=== PATIENT | female | born 1980 | race Caucasian/White ===

== ENCOUNTER → 2016-04-22 | Outpatient (REF) | payer BC | END | disposition home or self-care (01) | LOC: M LAB REF 13:12 | PROVIDERS: ATTEND Internal Medicine Medical Oncology | DX: C50.919 Malignant neoplasm of unspecified site of unspecified female breast (principal) ==

== ENCOUNTER → 2016-05-10 | Outpatient (RCR) | payer BC | LOC: M OUTALCOH 04-13 13:19 | PROVIDERS: ATTEND Psychiatry & Neurology Psychiatry | DX: F10.20 Alcohol dependence, uncomplicated (principal); Z72.0 Tobacco use ==

== ENCOUNTER → 2016-06-07 | Outpatient (RCR) | payer BC | LOC: M OUTALCOH 05-11 16:00 | PROVIDERS: ATTEND Psychiatry & Neurology Psychiatry | DX: F10.20 Alcohol dependence, uncomplicated (principal); Z72.0 Tobacco use ==

== ENCOUNTER 2016-07-07 14:00 | Outpatient (RCR) | payer BC | END 2016-07-08 | LOC: M OUTALCOH 14:00 | PROVIDERS: ATTEND Psychiatry & Neurology Psychiatry | DX: F10.20 Alcohol dependence, uncomplicated (principal); Z72.0 Tobacco use ==

== ENCOUNTER 2016-07-25 15:00 | Outpatient (RCR) | payer OTHER | END 2016-08-07 | LOC: M OUTALCOH 15:00 | PROVIDERS: ATTEND Psychiatry & Neurology Psychiatry | DX: F10.20 Alcohol dependence, uncomplicated (principal); Z72.0 Tobacco use ==

== ENCOUNTER → 2016-12-22 | Outpatient (CLI) | payer OTHER | LOC: M OUTALCOH 12:47 | PROVIDERS: ATTEND Psychiatry & Neurology Psychiatry | DX: F10.20 Alcohol dependence, uncomplicated (principal) ==

== ENCOUNTER 2016-12-29 15:25 | Outpatient (RCR) | payer OTHER | END 2017-01-07 | LOC: M OUTALCOH 15:25 | PROVIDERS: ATTEND Psychiatry & Neurology Psychiatry | DX: F10.20 Alcohol dependence, uncomplicated (principal); Z72.0 Tobacco use ==

== ENCOUNTER → 2017-03-09 | Outpatient (RCR) | payer OTHER | LOC: M OUTALCOH 02-16 08:00 | PROVIDERS: ATTEND Psychiatry & Neurology Psychiatry | DX: F10.20 Alcohol dependence, uncomplicated (principal); Z72.0 Tobacco use ==

== ENCOUNTER → 2017-09-26 | Outpatient (REF) ==
[2017-09-27 11:14] LABS: RUBELLA IgG QUALITATIVE IMMUNE (IMMUNE)
[2017-09-28 08:22] LABS: RUBEOLA IgG ANTIBODY <25.0 AU/mL (Immune >29.9)
== END ==
LOC: M LAB 15:28
DX: Z02.1 Encounter for pre-employment examination (principal)

== ENCOUNTER → 2018-09-04 | Outpatient (CLI) | payer BC ==
--- NOTE | 2018-09-04 12:08 | REP ---
LUMBAR SPINE, SIX VIEWS: HISTORY: Back pain. There is no acute fracture or subluxation. The L4-5 intervertebral disc is decreased in height consistent with disc degeneration. An osteophyte is present on L4. There is narrowing of the left L4-5 and L5-S1 and right L5-S1 facet joints. IMPRESSION: Degenerative change as described above. Electronically Signed by Bryant Muniz MD 09/04/2018 12:17 P
[2018-09-04 16:29] LABS: BASO # 0.1 10^3/uL (0.0-0.2); BASO % 0.6 % (0.0-1.0); EOS # 0.2 10^3/uL (0.0-0.50); EOS % 2.9 % (0.0-3.0); HEMOGLOBIN 14.3 g/dl (12.0-15.5); LYMPH # 2.6 10^3/uL (1.5-4.5); LYMPH % 32.4 % (24.0-44.0); MEAN CORPUSCULAR HEMOGLOBIN 30.5 pg (27.0-33.0); MEAN CORPUSCULAR HGB CONC 33.3 g/dl (32.0-36.5); MEAN CORPUSCULAR VOLUME 91.7 fl (80.0-96.0); MONO # 0.6 10^3/uL (0.0-0.8); NEUTROPHILS # 4.4 10^3/uL (1.8-7.7); NEUTROPHILS % 56.6 % (36.0-66.0); PLATELET COUNT, AUTOMATED 254 10^3/uL (150-450); RED BLOOD COUNT 4.69 10^6/uL (4.00-5.40); WHITE BLOOD COUNT 7.9 10^3/uL (4.0-10.0)
[2018-09-04 18:52] LABS: ALBUMIN 3.9 GM/DL (3.2-5.2); ALT/SGPT 14 U/L (12-78); BILIRUBIN,TOTAL 0.2 MG/DL (0.2-1.0); BLOOD UREA NITROGEN 7 MG/DL (7-18); CALCIUM LEVEL 8.7 MG/DL (8.5-10.1); CARBON DIOXIDE LEVEL 28 MEQ/L (21-32); CHLORIDE LEVEL 109 MEQ/L (98-107); CREATININE FOR GFR 0.65 MG/DL (0.55-1.30); GLOMERULAR FILTRATION RATE > 60.0 (>60); GLUCOSE, FASTING 90 MG/DL (70-100); POTASSIUM SERUM 4.5 MEQ/L (3.5-5.1); SODIUM LEVEL 142 MEQ/L (136-145); TOTAL PROTEIN 7.3 GM/DL (6.4-8.2)
== END ==
LOC: M WUC 10:47
PROVIDERS: ATTEND Family Medicine
DX: C50.919 Malignant neoplasm of unspecified site of unspecified female breast (principal); M51.36 Other intervertebral disc degeneration, lumbar region; M51.37 Other intervertebral disc degeneration, lumbosacral region; M25.78 Osteophyte, vertebrae

== ENCOUNTER → 2019-07-19 | Outpatient (CLI) | payer BC ==
[~2019-07-19] MED LIST: ALPR0.5T3 PO; ISOVUE-370 76% 100ML VIAL (Q9967) As Ordered ONE; QUET100T2 PO
--- NOTE | 2019-07-19 17:00 | REP ---
HISTORY: History if breast carcinoma with dyspnea. COMPARISON: 04/22/2013, the only prior. CONTRAST: 100 mL Isovue-370 There is no mediastinal or hilar adenopathy. There are no pleural or pericardial effusions. The imaged upper abdomen is within normal limits. The imaged osseous structures are within normal limits and essentially unchanged from the prior exam. Evaluation of the lung blount show no significant changes from 04/22/2013. There are no new abnormal nodules, masses or opacities. Mild stable biapical chronic lung changes, status quo. IMPRESSION: Stable chest. There is no evidence of acute disease. Electronically Signed by Nahun Ellis DO 07/19/2019 05:07 P
== END ==
LOC: M RAD 15:45
PROVIDERS: ATTEND Internal Medicine Medical Oncology
DX: R06.02 Shortness of breath (principal); Z85.3 Personal history of malignant neoplasm of breast
CPT/HCPCS: 71260; Q9967

== ENCOUNTER → 2019-07-23 | Outpatient (CLI) | payer BC ==
[~2019-07-23] MED LIST changes: -ISOVUE-370 76% 100ML VIAL (Q9967) As Ordered ONE; +PROHANCE 279.3MG/ML 5ML VIAL (A9576) As Ordered ONE
--- NOTE | 2019-07-23 13:11 | REP ---
MRI BRAIN WITH AND WITHOUT CONTRAST: Comparison 09/05/2014. TECHNIQUE: Multiple sequences obtained in the sagittal, axial, and coronal planes prior to and following the intravenous administration of 9 mL ProHance. The ventricles are normal in size and position with no midline shift or mass effect. Art-white differentiation is well maintained. No abnormal signal or enhancement is seen in the brain, brainstem, or cerebellum. The seventh and eighth cranial nerve complexes are unremarkable. Globes are intact. No intraorbital abnormality is seen. The visualized paranasal sinuses are clear. No extra-axial fluid collection is seen. IMPRESSION: No intracranial lesion identified. Electronically Signed by Wesley Art MD 07/23/2019 03:30 P
--- NOTE | 2019-07-23 14:21 | MEDONCTEEN ---
Date/Time of Encounter Date of Encounter: Jul 23, 2019 Telephone Encounter Ms. Yang is a 39-year-old female with a history of stage II A breast cancer which is ER positive, ID positive, HER-2/venessa negative he was found to have symptoms of headache, blurry vision, and increasing shortness of breath recently. CT chest was performed 07/22/19 followed by MRI of the brain with and without contrast on 07/23/2019. Both of these are nonrevealing and show no dar dence of malignancy. The patient was called with these results. Laboratory data that is stated below was also reviewed with the patient. We discussed that while the imaging was reassuring as it did not show any pathologic findings or evidence of malignancy, it does not explain why she is having these symptoms. The patient was encouraged to call the [facility] to determine what her appointment on 08/05/19 is with regards to. We will cancel her follow-up on 07/30/2019. Instead, we will follow-up with the patient in 6 months time with labs. We'll call her with this new appointment. She knows to contact us in the interim if needed. The plan was explained to the patient voiced understanding. Item Value Date Time CA 15-3 Antigen 11.4 U/ML 07/17/19 0859 CA 27.29 22.0 U/mL 07/17/19 0859 This is a telephonic visit which was performed without the use of video technology. The patient was informed of the risks including security breach, technological failure, inability to perform a physical exam which could delay or prevent an accurate diagnosis, and potential complications from treatment decisions rendered over a telephonic platform. The patient understands and consented to the use of a telephonic visit/telephone call. GRACIE JULIEN MD Jul 23, 2019 14:21
== END ==
LOC: M RAD 10:44
PROVIDERS: ATTEND Internal Medicine Medical Oncology
DX: R51 Headache (principal); Z85.3 Personal history of malignant neoplasm of breast; Z87.891 Personal history of nicotine dependence
CPT/HCPCS: 70553; A9576

== ENCOUNTER → 2019-08-09 | Outpatient (CLI) | payer BC ==
[~2019-08-09] MED LIST changes: -PROHANCE 279.3MG/ML 5ML VIAL (A9576) As Ordered ONE
--- NOTE | 2019-08-09 12:06 | REP ---
REASON FOR EXAM: Axillary fullness not breast. Ultrasonographic evaluation of the right axilla not breast was performed. There are no cystis or solid masses. A subcentimeter size reniform shape peripherally hypoechoic centrally echogenic nodule was imaged consistent with an axillary lymph node of normal size, shape and echo pattern.
== END ==
LOC: M WHC 10:46
PROVIDERS: ATTEND Surgery
DX: R22.2 Localized swelling, mass and lump, trunk (principal)

== ENCOUNTER → 2020-05-01 | Outpatient (CLI) | payer BC ==
[~2020-05-01] MED LIST changes: +AMBI12.52 PO; +AMOX500C PO; +MIRT1TAB15 PO; +PERCOCET PO
[2020-05-01 10:09] LABS: HEMATOCRIT 41.2 % (36.0-47.0); HEMOGLOBIN 13.9 g/dl (12.0-15.5); MEAN CORPUSCULAR HEMOGLOBIN 30.5 pg (27.0-33.0); MEAN CORPUSCULAR HGB CONC 33.7 g/dl (32.0-36.5); MEAN CORPUSCULAR VOLUME 90.5 fl (80.0-96.0); PLATELET COUNT, AUTOMATED 270 10^3/uL (150-450); RED BLOOD COUNT 4.55 10^6/uL (4.00-5.40); WHITE BLOOD COUNT 8.3 10^3/uL (4.0-10.0)
[2020-05-01 10:39] LABS: ALBUMIN 4.1 GM/DL (3.2-5.2); ALT/SGPT 18 U/L (12-78); BILIRUBIN,TOTAL 0.3 MG/DL (0.2-1.0); BLOOD UREA NITROGEN 13 MG/DL (7-18); CARBON DIOXIDE LEVEL 26 MEQ/L (21-32); CHLORIDE LEVEL 103 MEQ/L (98-107); CREATININE FOR GFR 0.64 MG/DL (0.55-1.30); GLOMERULAR FILTRATION RATE > 60.0 (>60); GLUCOSE, FASTING 86 MG/DL (70-100); POTASSIUM SERUM 4.3 MEQ/L (3.5-5.1); SODIUM LEVEL 138 MEQ/L (136-145); TOTAL PROTEIN 7.2 GM/DL (6.4-8.2)
== END ==
LOC: M LAB 09:33
PROVIDERS: ATTEND Family Medicine
DX: Z01.818 Encounter for other preprocedural examination (principal)

== ENCOUNTER → 2020-05-04 | Outpatient (CLI) | payer BC ==
--- NOTE | 2020-05-05 16:09 | ECGEPIP ---
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 Consider RIGHT VENTRICULAR HYPERTROPHY versus prior posterior wall CT. Slower rate with improved repolarization abnormalities from 04/12/15 Electronically Signed on 05-05-2020 16:09:49 EST by Arvind Horton
== END ==
LOC: M EKG 11:27
PROVIDERS: ATTEND Family Medicine
DX: Z01.818 Encounter for other preprocedural examination (principal)

== ENCOUNTER → 2020-05-07 | Outpatient (CLI) | payer BC ==
[~2020-05-07] MED LIST changes: -AMOX500C PO; -PERCOCET PO
== END ==
LOC: M LABSMTC 10:38
PROVIDERS: ATTEND Anesthesiology
DX: Z01.812 Encounter for preprocedural laboratory examination (principal); Z20.822 Contact with and (suspected) exposure to COVID-19

== ENCOUNTER 2020-05-12 06:18 | Observation (INO) | payer BC ==
[~2020-05-12] VITALS: Ht 157.5 cm; Wt 51.7 kg
[~2020-05-12 06:18] MED LIST changes: +LR 1,000 ML IV ONE; +ceFAZolin SOD 1 GM in D5W MINI-BAG PLUS 50 ML IV ONE
--- OUTSIDE RECORDS SUMMARY | 2020-05-12 06:22 | CCD | Continuity of Care Document ---
Author Author Helga HICKS DO Organization Unknown Address [address] [place] [address] Phone [phone] Care Team Providers Care Marketing Associate Name Role Phone Berry Costello M.D. AUT[facility] [phone] [facility] Unavailable Shala Shaikh D.O. AUTM [phone] Problems Active Problems Provider Date Malignant neoplasm of female breast Imelda Patton D.O. Ons et: 02/28/2013 Fibrocystic disease of breast Imelda Patton D.O. Onset: Breast lump Imelda Patton D.O. Onset: 02/28/2013 Social History Type Date Description Comments Sex Female Tobacco Use Start: Unknown Current Cigarette Smoker 5-10 Ci garettes Daily ETOH Use 1-2 A Week Tobacco Use Start: Unknown Denies Smoking Recreational Drug Use Denies Drug Use Smoking Status Reviewed: 08/14/19 Denies Smoking Allergies, Adverse Reactions, Alerts Active Allergies Reaction Severity Comments Date Reglan ANXIOUS 02/05/2013 Medications Active Medications SIG Qnty Indications Ordering Provide r Date Xanax 0.5mg Tablets 1 tab by mouth qhs Unknown Ambien CR 12.5mg Tablets ER 1 po qhs prn Unknown Immunizations Description No Information Available Vital Signs Date Vital Result Comment 05/01/2020 8:16am BP Systolic 98 mmHg BP Diastolic 66 mmHg Heart Rate 74 /min Respiratory Rate 14 /min Body Temperature 98.4 F Height 62 inches 5'2" Weight 116.00 lb BMI (Body Mass Index) 21.2 kg/m2 [place] Body Weight 110 lb Weight 52.618 kg BSA (Body Surface Area) 1.52 m2 12/09/2019 3:10pm BP Systolic 118 mmHg BP Diastolic 64 mmHg Heart Rate 84 /min Respiratory Rate 16 /min Body Temperature 98.2 F Height 62 inches 5'2" Weight 108.00 lb BMI (Body Mass Index) 19.8 kg/m2 [place] Body Weight 110 lb Weight 48.989 kg BSA (Body Surface Area) 1.47 m2 Results Description No Information Available Procedures Description No Information Available Medical Devices Description No Information Available Encounters Type Date Location Provider Dx Diagnosis Office Visit 12/09/2019 1:00p [facility] Angela Hicks DO Z42.1 Encounter for breast reconstruction following mastectomy T85.49xA [facility] compl of breast prosthe sis and implant, init encntr Assessments Date Code Description Provider 12/09/2019 Z42.1 Encounter for breast reconstruct ion following mastectomy Angela Hicks DO 12/09/2019 T85.49xA Other mechanical com plication of breast prosthesis and implant, initial encounter Angela Hicks DO Plan of Treatment Future Appointment(s):* 05/12/2020 7:30 am - Angela Hicks DO at [facility] Plastic Surgery * 05/15/2020 8:30 am - Angela Hicks DO at [facility] Functional Status Description No Information Available Mental Status Description No Information Available Referrals Description No Information Available
--- OUTSIDE RECORDS SUMMARY | 2020-05-12 06:22 | CCD ---
Author Author [facility] Organization [facility] Address Unknown Phone Unavailable Care Team Providers Care Correction Officer Name Role Phone FABIOLA, E LEDA DO Unavailable Unavailable FABIOLA, E LEDA DO Unavailable Unavailable FABIOLA, E LEDA DO Unavailable Unavailable FABIOLA, E LEDA DO Unavailable Unavailable FABIOLA, E LEDA DO Unavailable Unavailable FABIOLA, E LEDA DO Unavailable Unavailable FABIOLA, E LEDA DO Unavailable Unavailable FABIOLA, E LEDA DO Unavailable Unavailable FABIOLA, E LEDA DO Unavailable Unavailable FABIOLA, E LEDA DO Unavailable Unavailable FABIOLA, E LEDA DO Unavailable Unavailable FABIOLA, E LEDA DO Unavailable Unavailable FABIOLA, E LEDA DO Unavailable Unavailable FABIOLA, E LEDA DO Unavailable Unavailable FABIOLA, E LEDA DO Unavailable Unavailable FABIOLA, E LEDA DO Unavailable Unavailable FABIOLA, E LEDA DO Unavailable Unavailable FABIOLA, E LEDA DO Unavailable Unavailable FABIOLA, E LEDA DO Unavailable Unavailable FABIOLA, E LEDA DO Unavailable Unavailable FABIOLA, E LEDA DO Unavailable Unavailable Monty VERMA MD Unavailable Unavailable Monty VERMA MD Unavailable Unavailable Monty VERMA MD Unavailable Unavailable Monty VERMA MD Unavailable Unavailable Monty VERMA MD Unavailable Unavailable EMERTON, A ZIA MD Unavailable Unavailable EMERTON, A ZIA MD Unavailable Unavailable EMERTON, A ZIA MD Unavailable Unavailable EMERTON, A ZIA MD Unavailable Unavailable EMERTON, A ZIA MD Unavailable Unavailable EMERTON, A ZIA MD Unavailable Unavailable EMERTON, A ZIA MD Unavailable Unavailable EMERTON, A ZIA MD Unavailable Unavailable EMERTON, A ZIA MD Unavailable Unavailable EMERTON, A ZIA MD Unavailable Unavailable EMERTON, A ZIA MD Unavailable Unavailable EMERTON, A ZIA MD Unavailable Unavailable EMERTON, A ZIA MD Unavailable Unavailable EMERTON, A ZIA MD Unavailable Unavailable EMERTON, A ZIA MD Unavailable Unavailable EMERTON, A ZIA MD Unavailable Unavailable EMERTON, A ZIA MD Unavailable Unavailable EMERTON, A ZIA MD Unavailable Unavailable EMERTON, A ZIA MD Unavailable Unavailable EMERTON, A ZIA MD Unavailable Unavailable EMERTON, A ZIA MD Unavailable Unavailable EMERTON, A ZIA MD Unavailable Unavailable EMERTON, A ZIA MD Unavailable Unavailable EMERTON, A ZIA MD Unavailable Unavailable EMERTON, A ZIA MD Unavailable Unavailable EMERTON, A ZIA MD Unavailable Unavailable EMERTON, A ZIA MD Unavailable Unavailable EMERTON, A ZIA MD Unavailable Unavailable EMERTON, A ZIA MD Unavailable Unavailable EMERTON, A ZIA MD Unavailable Unavailable EMERTON, A ZIA MD Unavailable Unavailable EMERTON, A ZIA MD Unavailable Unavailable EMERTON, A ZIA MD Unavailable Unavailable EMERTON, A ZIA MD Unavailable Unavailable EMERTON, A ZIA MD Unavailable Unavailable EMERTON, A ZIA MD Unavailable Unavailable EMERTON, A ZIA MD Unavailable Unavailable EMERTON, A ZIA MD Unavailable Unavailable EMERTON, A ZIA MD Unavailable Unavailable EMERTON, A ZIA MD Unavailable Unavailable EMERTON, A ZIA MD Unavailable Unavailable EMERTON, A ZIA MD Unavailable Unavailable EMERTON, A ZIA MD Unavailable Unavailable EMERTON, A ZIA MD Unavailable Unavailable EMERTON, A ZIA MD Unavailable Unavailable EMERTON, A ZIA MD Unavailable Unavailable EMERTON, A ZIA MD Unavailable Unavailable EMERTON, A ZIA MD Unavailable Unavailable EMERTON, A ZIA MD Unavailable Unavailable EMERTON, A ZIA MD Unavailable Unavailable EMERTON, A ZIA MD Unavailable Unavailable EMERTON, A ZIA MD Unavailable Unavailable EMERTON, A ZIA MD Unavailable Unavailable EMERTON, A ZIA MD Unavailable Unavailable EMERTON, A ZIA MD Unavailable Unavailable EMERTON, A ZIA MD Unavailable Unavailable EMERTON, A ZIA MD Unavailable Unavailable EMERTON, A ZIA MD Unavailable Unavailable EMERTON, A ZIA MD Unavailable Unavailable EMERTON, A ZIA MD Unavailable Unavailable EMERTON, A ZIA MD Unavailable Unavailable EMERTON, A ZIA MD Unavailable Unavailable EMERTON, A ZIA MD Unavailable Unavailable EMERTON, A ZIA MD Unavailable Unavailable EMERTON, A ZIA MD Unavailable Unavailable EMERTON, A ZIA MD Unavailable Unavailable EMERTON, A ZIA MD Unavailable Unavailable EMERTON, A ZIA MD Unavailable Unavailable EMERTON, A ZIA MD Unavailable Unavailable Ali, Jeff MD Unavailable Unavailable Ali, Jeff MD Unavailable Unavailable Ali, Jeff MD Unavailable Unavailable Ali, Jeff MD Unavailable Unavailable Ali, Jeff MD Unavailable Unavailable Ali, Jeff MD Unavailable Unavailable Ali, Jeff MD Unavailable Unavailable Ali, Jeff MD Unavailable Unavailable Ali, Jeff MD Unavailable Unavailable Ali, Jeff MD Unavailable Unavailable Ali, Jeff MD Unavailable Unavailable Ali, Jeff MD Unavailable Unavailable Ali, Jeff MD Unavailable Unavailable Ali, Jeff MD Unavailable Unavailable Ali, Jeff MD Unavailable Unavailable Ali, Jeff MD Unavailable Unavailable Ali, Jeff MD Unavailable Unavailable Ali, Jeff MD Unavailable Unavailable Ali, Jeff MD Unavailable Unavailable Ali, Jeff MD Unavailable Unavailable Ali, Jeff MD Unavailable Unavailable Ali, Jeff MD Unavailable Unavailable Ali, Jeff MD Unavailable Unavailable Ali, Jeff MD Unavailable Unavailable Ali, Jeff MD Unavailable Unavailable Ali, Jeff MD Unavailable Unavailable Ali, Jeff MD Unavailable Unavailable Ali, Jeff MD Unavailable Unavailable Ali, Jeff MD Unavailable Unavailable Ali, Jeff MD Unavailable Unavailable Ali, Jeff MD Unavailable Unavailable Ali, Jeff MD Unavailable Unavailable Ali, Jeff MD Unavailable Unavailable Ali, Jeff MD Unavailable Unavailable Ali, Jeff MD Unavailable Unavailable Ali, Jeff MD Unavailable Unavailable Ali, Jeff MD Unavailable Unavailable Ali, Jeff MD Unavailable Unavailable Ali, Jeff MD Unavailable Unavailable Ali, Jeff MD Unavailable Unavailable Ali, Jeff MD Unavailable Unavailable Ali, Jeff MD Unavailable Unavailable Ali, Jeff MD Unavailable Unavailable Ali, Jeff MD Unavailable Unavailable Ali, Jeff MD Unavailable Unavailable Ali, Jeff MD Unavailable Unavailable Ali, Jeff MD Unavailable Unavailable Ali, Jeff MD Unavailable Unavailable Ali, Jeff MD Unavailable Unavailable Re-disclosure Warning The records that you are about to access may contain information from federally-assisted alcohol or drug abuse programs. If such information is present, then the following federally mandated warning applies: This information has been disclosed to you from records protected by federal confidentiality rules (42 CFR part 2). The federal rules prohibit you from making any further disclosure of this information unless further disclosure is expressly permitted by the written consent of the person to whom it pertains or as otherwise permitted by 42 CFR part 2. A general authorization for the release of medical or other information is NOT sufficient for this purpose. The Federal rules restrict any use of the information to criminally investigate or prosecute any alcohol or drug abuse patient.The records that you are about to access may contain highly sensitive health information, the redisclosure of which is protected by Article 27-F of the [facility] Public Health law. If you continue you may have access to information: Regarding HIV / AIDS; Provided by facilities licensed or operated by the [facility] Office of Mental Health; or Provided by the [facility] Office for People With Developmental Disabilities. If such information is present, then the following [facility] mandated warning applies: This information has been disclosed to you from confidential records which are protected by state law. State law prohibits you from making any further disclosure of this information without the specific written consent of the person to whom it pertains, or as otherwise permitted by law. Any unauthorized further disclosure in violation of state law may result in a fine or penitentiary sentence or both. A general authorization for the release of medical or other information is NOT sufficient authorization for further disc losure. Allergies and Adverse Reactions Type Description Substance Reaction Status Data Source(s ) metocloperamide metocloperamide metocloperamide Unknown Active eCW1 ([facility]) Encounters Encounter Providers Location Date Indications Data Source(s ) Outpatient Attender: Jeff Brannon MD Main office - [place] 04/09/2020 01:00:00 PM EST [facility] ([facility]) Outpatient Attender: Jeff Brannon MD Main office - [place] 12/26/2019 08:00:00 AM EDT [facility] ([facility]) Outpatient Attender: LEDA Ramirez/Stefan/Rubio/Susan scherer 12/09/2019 01:00:00 PM EDT [facility] ([facility]) Outpatient Referrer: ZIA VERMA MD 08/20/2019 05:56:00 AM EDT [facility] Outpatient Referrer: ZIA VERMA MD 08/15/2019 06:18:00 AM EDT [facility] Outpatient Attender: LEDA Ramirez/Stefan/Rubio/Susan scherer 08/14/2019 10:45:00 AM EDT [facility] ([facility] ) Outpatient Referrer: ZIA VERMA MD 08/14/2019 05:34:00 AM EDT [facility] [address] [place] [address] 08/14/2019 12:00:00 AM EDT eCW1 ([facility]) [facility] [address] [place] [address] 08/05/2019 12:00:00 AM EDT eCW1 ([facility]) Medications Medication Brand Name Start Date Product Form Dose Route Admi nistrative Instructions Pharmacy Instructions Status Indications Reaction Description Data Source(s) Eszopiclone 3 MG Oral Tablet Eszopiclone 04/09/2020 12:00:00 AM EST active [facility] ([facility] ) Zolpidem tartrate 12.5 MG Extended Release Oral Tablet [Ambi en] Ambien CR 02/07/2020 12:00:00 AM EDT ORAL completed [facility] ([facility] ) Mirtazapine 30 MG Oral Tablet Mirtazapine 12/26/2019 12:00:00 AM EDT ORAL active [facility] ([facility] ) Insurance Providers Payer name Policy type / Coverage type Policy ID Covered alliance party ID Covered alliance party's relationship to dyer Policy Dyer Plan Information [employer] [place]/307 [id number] [place] [place]/307 [id number] EXCELLUS BCBS B [id number] P [id number] [place]/307 [id number] [id number] [place] 302/307 [id number] SELF PAY ONLY [id number] SP [id number] [employer] [place] 306/806 [id number] EXCELLUS BCBS B [id number] P [id number] VALUE OPTIONS OUTPATIENT CLAIM [id number] BCBS EMPIRE KALEB DIV [id number] [place] P[place] 302/307 [id number] SELF PAY ONLY UNAVAILABLE UNAV AILABLE BLUE CROSS BLUE SHIELD-O/P [id number] 01 [id number] BLUE CROSS BLUE SHIELD-O/P [id number] 01 [id number] BLUE CROSS BLUE SHIELD -CLINIC [id number] EXCELLUS BCBS B [id number] P [id number] [place] PPO 302/307 [id number] HU2 [id number] EXCELLUS H [id number] Spouse [id number] EXCELLUS BCBS P [id number] P [id number] EXCELLUS BCBS P [id number] P VYI EXCELLUS H [id number] Spouse [id number] EXCELLUS C [id number] Unkn [id number] SELFPAY 5 UNAVAILABLE 1 UNAVAILA BLE BLUE CROSS CNY 1 [id number] BLUE CROSS CNY 1 [id number] [place] PPO 302/307 [id number] [id number] [employer] [place] 306/8 P [id number] P [id number] O UNAVAILABLE UNAVAILA BLE Problems, Conditions, and Diagnoses Code Display Name Description Problem Type Effective Dates Data Source(s) 727233758 Migraine without aura, not refractory Mi graine without aura, not refractory Problem 12/26/2019 12:00:00 AM EDT [facility] [id number] Mild recurrent major depression Mild recurrent m ajor depression Problem 12/26/2019 12:00:00 AM EDT [facility] ([facility] ) [id number] Generalized anxiety disorder Generalized anxiety disor carol Problem 12/26/2019 12:00:00 AM EDT [facility] ([facility] ) [id number] Disorders of initiating and maintaining sleep Disorders of initiating and maintaining sleep Problem 12/26/2019 12:00:00 AM EDT [facility] ([facility] ) Z90.13 863301368 Hx of bilateral mastectomy Problem 0 12:00:00 AM EDT eCW1 ([facility]) F17.200 [id number] Smoking Problem 08/15/2019 12:00:00 AM ED T eCW1 ([facility]) Z85.3 [id number] Hx of breast cancer Problem 08/15/2019 12:00 :00 AM EDT eCW1 ([facility]) N65.0 [id number] Breast reconstruction deformity Proble m 08/05/2019 12:00:00 AM EDT eCW ([facility]) Results ID Date Data Source [id number] 05/07/2020 02:00:00 PM EST [facility] Name Value Range Interpretation Code Description Data Dulce rce(s) Supporting Document(s) SARS coronavirus 2 RNA Not Detected [facility] [place] This lab was ordered by [facility] and reported by [facility]. Procedure Vital Signs ID Date Data Source UNK Name Value Range Interpretation Code Description Data Source(s) Body surface area Derived from formula 1.52 m2 1.52 m2 [facility] ([facility]) Body weight 52.618 kg 52.618 kg [facility] ([facility]) [place] body weight 110 [lb_av] 110 [lb_av] [facility] ([facility]) Body mass index (BMI) [Ratio] 21.2 kg/m2 21.2 k g/m2 [facility] ([facility]) Body weight 116.00 [lb_av] 116.00 [lb_av] [facility] Body height 62 [in_i] 62 [in_i] [facility] ([facility]) 5'2" Body temperature 98.4 [degF] 98.4 [degF] [facility] ([facility]) Respiratory rate 14 /min 14 /min [facility] ( [facility]) Heart rate 74 /min 74 /min [facility] Diastolic blood pressure 66 mm[Hg] 66 mm[Hg] [facility] ([facility]) Systolic blood pressure 98 mm[Hg] 98 mm[facility]Hg] [facility] [place] body weight 110 [lb_av] 110 [lb_av] [facility] ([facility]) Body mass index (BMI) [Ratio] 19.4 kg/m2 19.4 k g/m2 [facility] ([facility]) Body weight 106.00 [lb_av] 106.00 [lb_av] [facility] ([facility]) Body height 62 [in_i] 62 [in_i] [facility] ([facility]) 5'2" Respiratory rate 14 /min 14 /min [facility] ( [facility]) Heart rate 78 /min 78 /min [facility] ([facility]) Diastolic blood pressure 70 mm[Hg] 70 mm[Hg] [facility] ([facility]) Systolic blood pressure 110 mm[Hg] 110 mm[Hg] [facility] ([facility]) Body surface area Derived from formula 1.47 m2 1.47 m2 [facility] ([facility]) Body weight 48.989 kg 48.989 kg [facility] ([facility]) [place] body weight 110 [lb_av] 110 [lb_av] [facility] ([facility]) Body mass index (BMI) [Ratio] 19.8 kg/m2 19.8 k g/m2 [facility] ([facility]) Body weight 108.00 [lb_av] 108.00 [lb_av] [facility] ([facility]) Body height 62 [in_i] 62 [in_i] [facility] ([facility]) 5'2" Body temperature 98.2 [degF] 98.2 [degF] [facility] ([facility]) Respiratory rate 16 /min 16 /min [facility] Heart rate 84 /min 84 /min [facility] ([facility]) Diastolic blood pressure 64 mm[Hg] 64 mm[Hg] [facility] Systolic blood pressure 118 mm[Hg] 118 mm[Hg] [facility] Body weight 51.313 kg 51.313 kg [facility] ([facility]) Body mass index (BMI) [Ratio] 20.7 kg/m2 20.7 k g/m2 [facility] ([facility]) Body weight 113.12 [lb_av] 113.12 [lb_av] [facility] ([facility]) Body height 62 [in_i] 62 [in_i] [facility] ([facility]) 5'2" Body temperature 98.1 [degF] 98.1 [degF] [facility] ([facility]) Diastolic blood pressure 60 mm[Hg] 60 mm[Hg] [facility] ([facility]) Systolic blood pressure 110 mm[Hg] 110 mm[Hg] [facility] Diastolic blood pressure 68 mm[Hg] 68 mm[Hg] eCW1 ([facility]) Systolic blood pressure 102 mm[Hg] 102 mm[Hg] e CW1 ([facility]) Body temperature 98.2 [degF] 98.2 [degF] eCW1 ( [facility]) Respiratory rate 16 /min 16 /min eCW1 ([facility]) Heart rate 68 /min 68 /min eCW1 ([facility]) Body mass index (BMI) [Ratio] 20.48 kg/m2 20.48 kg/m2 eCW1 ([facility]) Body height 62 [in_us] 62 [in_us] eCW1 ([facility]) Body weight Measured 112 [lb_av] 112 [lb_av] eC W1 ([facility])
--- OUTSIDE RECORDS SUMMARY | 2020-05-12 06:22 | CCD | Continuity of Care Document ---
Author Helga Gomez M.D. Organization Unknown Address [address] [place] [address] Phone [phone] Care Team Providers Care Recovery Operator Name Role Phone Berry Costello M.D. AUTM [phone] Problems Active Problems Provider Date Disorders of initiating and maintaining sleep Bucky Martin Onset: 12/26/2019 Generalized anxiety disorder Jeff Brannon M.D. Onset: 12/09 Mild recurrent major depression Jeff Brannon M.D. Onset: 0 12/26/2019 Migraine without aura, not refractory Jeff Brannon M.D. On set: 12/26/2019 Social History Type Date Description Comments Sex Unknown Tobacco Use Start: Unknown Patient has never smoked Allergies, Adverse Reactions, Alerts Active Allergies Reaction Severity Comments Date Reglan 12/26/2019 Medications Active Medications SIG Qnty Indications Ordering Provide r Date Eszopiclone 3mg Tablets Half a Tab po qhs for 3 nights, then 1 po qhs. 30ita Brannon M.D. Mirtazapine 30mg Tablets 1 po qhs 30tabs Jeff Brannon M.D. 12/26/2019 History Medications Ambien CR 12.5mg Tablets ER 1 by mouth every night at bedtime for insomnia. mdd 1 30tabs Micah Brannon M.D. 02/07/2020 - 04/09/2020 Immunizations Description No Information Available Vital Signs Date Vital Result Comment 12/26/2019 8:25am BP Systolic 110 mmHg BP Diastolic 70 mmHg Heart Rate 78 /min Respiratory Rate 14 /min Height 62 inches 5'2" Weight 106.00 lb BMI (Body Mass Index) 19.4 kg/m2 [place] Body Weight 110 lb Results Description No Information Available Procedures Description No Information Available Medical Devices Description No Information Available Encounters Type Date Location Provider Dx Diagnosis Office Visit 04/09/2020 2:00p Main office - Bucky Young F51.01 Primary insomnia F41.1 Generalized anxiety disorder F33.0 Major depressive disorder, r ecurrent, mild G43.009 Migraine w/o aura, not intra ctable, w/o status migrainosus Office Visit 12/26/2019 8:00a Main office - ChristianaBucky Davison F51.01 Primary insomnia F41.1 Generalized anxiety disorder F33.0 Major depressive disorder, r ecurrent, mild G43.009 Migraine w/o aura, not intra ctable, w/o status migrainosus Assessments Date Code Description Provider 04/09/2020 F51.01 Primary insomnia Debbie Martin 04/09/2020 F41.1 Generalized anxiety disorder Iza Brannon M.D. 04/09/2020 F33.0 Major depressive disorder, recur rent, lanre Brannon M.D. 04/09/2020 G43.009 Migraine without aur a, not intractable, without status migrainosus Jeff Brannon M.D. 12/26/2019 F51.01 Primary insomnia Debbie Martin 12/26/2019 F41.1 Generalized anxiety disorder Iza Brannon M.D. 12/26/2019 F33.0 Major depressive disorder, recur rent, lanre Brannon M.D. 12/26/2019 G43.009 Migraine without aur a, not intractable, without status migrainosus Jeff Brannon M.D. Plan of Treatment No Information Available Functional Status Description No Information Available Mental Status Description No Information Available Referrals Description No Information Available
--- OUTSIDE RECORDS SUMMARY | 2020-05-12 06:22 | CCD | Continuity of Care Document ---
Author Helga Gomez M.D. Organization Unknown Address [address] [place] [address] Phone [phone] Care Team Providers Care Business Intelligence Manager Name Role Phone Berry Costello M.D. AUTM [phone] Problems Active Problems Provider Date Disorders of [...] for 3 nights, then 1 po qhs. 30taebony Brannon M.D. Mirtazapine 30mg Tablets 1 po [...] lb BMI (Body Mass Index) 19.4 kg/m2 [place] Body Weight 110 lb Results Description No Information Available Procedures Description No Information Available Medical Devices Description No Information Available Encounters Type Date Location Provider Dx Diagnosis Office Visit 04/09/2020 2:00p Main office - BrandonBucky Nunes F51.01 Primary insomnia F41.1 Generalized anxiety disorder F33.0 Major depressive disorder, r ecurrent, mild G43.009 Migraine w/o aura, not intra ctable, w/o status migrainosus Office Visit 12/26/2019 8:00a Main office - BrandonBucky Davison F51.01 Primary insomnia F41.1 Generalized anxiety [...]
[2020-05-12] MEDS ORDERED: BACITRACIN PWD 50,000 UNITS VIAL As Ordered ONE (06:41)
[2020-05-12] MEDS ORDERED: BUPIVACAINE LIPOSOME/PF 1.3% 20ML VIAL (13.3MG/ML)(EXPAREL)(C9290 PER1MG) As Ordered ONE (06:42)
[2020-05-12] MEDS ORDERED: ROCURONIUM BROMIDE 50 MG/5 ML VIAL As Ordered ONE ×2 (07:22→08:39)
[2020-05-12] MEDS ORDERED: fentaNYL 250 MCG/5 ML INJECTION (J3010) As Ordered ONE (07:22)
[2020-05-12] MEDS ORDERED: LIDOCAINE 2% 100MG/5ML SDV (FOR ANES.) As Ordered ONE (07:22)
[2020-05-12] MEDS ORDERED: propofoL 200 MG/20 ML VIAL As Ordered ONE (07:22)
[2020-05-12] MEDS ORDERED: dexameTHASONE 4 MG/ML 1ML VIAL (J1100 PER 1MG) As Ordered ONE (07:22)
[2020-05-12] MEDS ORDERED: ONDANSETRON 4MG/2ML VIAL As Ordered ONE (07:22)
[2020-05-12] MEDS ORDERED: MIDAZOLAM INJ 2MG/2ML VIAL (J2250 PER 1MG) As Ordered ONE (07:23)
[2020-05-12] MEDS ORDERED: SCOPOLAMINE 1MG TRANSDERMAL PATCH As Ordered ONE (07:52)
[2020-05-12] MEDS ORDERED: SCOPOLAMINE 1MG TRANSDERMAL PATCH TOP ONE (08:00)
[2020-05-12] MEDS ORDERED: PHENYLephrine 500MCG 5ML (100MCG/ML) SYRINGE As Ordered ONE (08:05)
[2020-05-12] MEDS ORDERED: ePHEDrine SULFATE 25 MG/5 ML(5MG/ML) SYRINGE As Ordered ONE ×2 (08:05→09:23)
[2020-05-12] MEDS ORDERED: SEVOFLURANE INHAL SOLN 250 ML BTL As Ordered ONE (08:06)
[2020-05-12] MEDS ORDERED: HYDROmorphone HCL 2 MG/ML 1ML VIAL (J1170) As Ordered ONE (08:27)
[2020-05-12] MEDS ORDERED: ACETAMINOPHEN 1000MG 100ML IV BTL (OFIRMEV) (J0131 PER 10MG) As Ordered ONE (08:27)
[2020-05-12] MEDS ORDERED: SUGAMMADEX SODIUM 500 MG/5 ML VIAL (BRIDION) As Ordered ONE (08:27)
--- NOTE | 2020-05-12 11:10 | POST-OPPD ---
Postoperative Procedure Note Date Of Procedure: May 12, 2020 PREOPERATIVE DIAGNOSIS: Bilateral breast animation deformity. POSTOPERATIVE DIAGNOSIS: same FINDINGS: animation deformity both breasts. Implant reconstruction bilateral. PROCEDURE: Revision of bilateral breast reconstruction with placement of expanders with pre pectoral reconstruction. SURGEON: Dr Hicks ANESTHESIA: General SPECIMENS: Right and left implants, Right and left capsule ESTIMATED BLOOD LOSS: 25 cc REPLACED: none DRAINS: 15 Fr round x 2 IMPLANTS: 275cc [place] smooth durability engineer x 2, Allomax 16x20 COMPLICATIONS: none POSTOPERATIVE CONDITION: stable LEDA HICKS DO May 12, 2020 11:10
[2020-05-12] MEDS ORDERED: ONDANSETRON 4MG/2ML VIAL IV PRN ×2 (11:15→11:45)
[2020-05-12] MEDS ORDERED: fentaNYL 100 MCG/2 ML INJECTION (J3010) As Ordered ONE (11:30)
[2020-05-12] MEDS: fentaNYL 100 MCG/2 ML INJECTION (J3010) IV PRN ×3 (11:35→11:46)
[2020-05-12] MEDS: oxyCODONE 5MG TAB PO PRN ×2 (11:45→13:06)
[2020-05-12] MEDS ORDERED: LR 1,000 ML IV SCH (11:45)
[2020-05-12] MEDS ORDERED: oxyCODONE 5MG TAB As Ordered ONE (13:05)
[2020-05-12] MEDS: KETOROLAC TROMETHAMINE 10 MG TAB PO PRN (13:48)
[2020-05-12] MEDS: LR 1,000 ML IV SCH (13:53)
[2020-05-12 14:00] VITALS: BP 130/78
[2020-05-12 15:00] VITALS: BP 136/70
--- NOTE | 2020-05-12 16:31 | ROOPDOC ---
[facility] Report Of Operation Report of Operation DATE OF PROCEDURE: 05/12/20 PREOPERATIVE DIAGNOSIS: Bilateral breast animation deformity. POSTOPERATIVE DIAGNOSIS: same FINDINGS: animation deformity both breasts. Implant reconstruction bilateral. PROCEDURE: Revision of bilateral breast reconstruction with placement of expanders with pre pectoral approach. SURGEON: Dr Hicks ANESTHESIA: General SPECIMENS: Right and left implants, Right and left capsule ESTIMATED BLOOD LOSS: 25 cc REPLACED: none DRAINS: 15 Fr round x 2 IMPLANTS: 275cc Oneida smooth social service assistant x 2, Allomax 16x20 COMPLICATIONS: none POSTOPERATIVE CONDITION: stable PROCEDURE: This is a 40-year-old female status post bilateral mastectomies with reconstruction with expender to implant, subpectoral approach. Patient had her procedure done about 8 years ago in a different institution. Patient has animation deformity on both breasts which causing her significant discomfort and she would like to have this deformity corrected. Long discussion was done with patient regarding the complexity of the procedure and need to change the plane for the reconstruction to prepectoral approach and repair of pectoralis muscle. High risk of reconstruction failure exists due to patient's body habitus as well as a history of smoking. Patient has stopped smoking, and she is willing to go ahead with procedure. Her initial measurements sternal notch to the left nipple areolar complex 17 cm to the right nipple areola complex 16 cm. Her mastectomy incisions are from inferior portion of a nipple areolar border extended laterally. We plan to use the same incision for our operation today. The day of surgery patient was marked in the upright position. Informed consent was confirmed. Risks benefits and alternatives discussed with the patient in details. Patient was brought into the operating room, placed in supine po sition. General anesthesia was induced. She was given preoperative antibiotics. Sequential stockings were placed in the lower calves. She is prepped and draped in the usual sterile fashion. We started our procedure on the right side. Incision carried out using 10 blade lateral from the nipple areola complex toward the lateral chest. We used peek cautery to elevate the flap to separate the pectoralis muscle from the subcutaneous tissue. Pectoralis muscle has been split in the middle longitudinally by pressing implant. We were able to carefully dissect off the pectoralis muscle off the subcuticular tissue and then open the subpectoral pocket. Implant identified, completely intact. This is Allergan style 10 gel implant 390 mL. It was sent for gross pathology. Open capsulotomy performed, part of the capsule sent to pathology. Pectoralis muscle was placed to her original position and repaired with 3-0 Vicryl sutures. 15 Israeli round drain was introduced through separate stab incision. The prepectoral pocket evaluated, bleeding controlled. 10 mL of Exparel infiltrated in the pectoralis muscle. Inframammary fold was oversewn with 0 Ethibond suture. Allomax 16 x 20 was introduced to the back table and washed in bacitracin irrigation and saline. 275 mL Oneida smooth social service assistant was introduced at the back table as well. Was perforated then wrapped around the social service assistant. The 0 PDS sutures were used from the posterior side of social service assistant to hold Allomax, excess Allomax is resected. Expanders deflated, then it was introduced into the pocket. Superior medial and inferior tabs were used to secure social service assistant in place to pectoralis muscle. Almond Blancher Operator reexpanded with air to 275 mL. Wound closed with interrupted 3-0 Monocryl sutures and 3-0 Vicryl sutures. Running 5-0 plain gut suture for dermis closure. Then the turn our attention to the left side. Incision carried out using 10 blade lateral from the nipple areola complex toward the lateral chest. We used peek cautery to elevate the flap to separate the pectoralis muscle from the subcutaneous tissue. Pectoralis muscle has been split in the middle longitudinally by pressing implant. We were able to carefully dissect off the pectoralis muscle off the subcuticular tissue and then open the subpectoral pocket. Implant identified, completely intact. This is Allergan style 10 gel implant 390 mL. It was sent for gross pathology. Open capsulotomy performed, part of the capsule sent to pathology. Pectoralis muscle was placed to her original position and repaired with 3-0 Vicryl sutures. 15 Israeli round drain was introduced through separate stab incision. The prepectoral pocket evaluated, bleeding controlled. 10 mL of Exparel infiltrated in the pectoralis muscle. Inframammary fold was oversewn with 0 Ethibond suture. Allomax 16 x 20 was introduced to the back table and washed in bacitracin irrigation and saline. 275 mL Oneida smooth social service assistant was introduced at the back table as well. Was perforated then wrapped around the social service assistant. The 0 PDS sutures were used from the posterior side of social service assistant to hold Allomax, excess Allomax is resected. Expanders deflated, then it was introduced into the pocket. Superior medial and inferior tabs were used to secure social service assistant in place to pectoralis muscle. Almond Blancher Operator reexpanded with air to 275 mL. Wound closed with interrupted 3-0 Monocryl sutures and 3-0 Vicryl sutures. Running 5-0 plain gut suture for dermis closure. Good symmetry achieved between the breasts. Prinio dressing applied to the incision followed by a bulky dressing and a surgical bra. Patient extubated without any difficulties and transferred to recovery room in stable condition. LEDA HICKS DO May 12, 2020 16:31
[2020-05-12] MEDS: PERCOCET 5MG/325MG TAB PO PRN ×2 (17:19→21:20)
[2020-05-12] MEDS: ceFAZolin SOD 1 GM in D5W MINI-BAG PLUS 50 ML IV SCH (17:19)
[2020-05-12 18:59] VITALS: BP 112/62
[2020-05-12] MEDS: ALPRAZolam 0.5 MG TAB PO PRN (21:19)
[2020-05-12 23:00] VITALS: BP 110/63
[2020-05-13] MEDS: diphenhydrAMINE 50MG/ML VIAL (J1200) IV PRN (00:57)
[2020-05-13] MEDS: KETOROLAC TROMETHAMINE 10 MG TAB PO PRN ×4 (00:57→21:02)
[2020-05-13] MEDS: ceFAZolin SOD 1 GM in D5W MINI-BAG PLUS 50 ML IV SCH ×4 (00:57→23:24)
[2020-05-13] MEDS: LR 1,000 ML IV SCH (01:01)
[2020-05-13 02:00] VITALS: BP 103/56
[2020-05-13 06:00] VITALS: BP 134/77
[2020-05-13] MEDS ORDERED: QUEtiapine FUMARATE 50MG TAB PO SCH (09:00)
[2020-05-13] MEDS ORDERED: MORPHINE 4 MG/ML 1ML VIAL/SYRINGE (J2270) IV ONE (09:00)
[2020-05-13 10:00] VITALS: BP 118/75
[2020-05-13 14:00] VITALS: BP 133/78
--- NOTE | 2020-05-13 16:46 | IPNPDOC ---
Subjective General Date Seen: May 13, 2020 Subject Chief Complaint/History The patient is a 40-year-old female admitted with a reason for visit of Malignant Neoplasm, Post Mastectomy. Patient s/p bilateral reconstruction revision with placement of bilateral expanders with pre pectoral reconstruction. POD 1. Pain controlled with Morphine IV. Ambulated. Tolerating diet. Current Medications Current Medications Current Medications Medications (Trade) Dose Ordered Sig/Mary Carmen Route PRN Reason Start Time Stop Time Status Last Admin Dose Admin Acetaminophen (Tylenol Tab) 650 mg Q6H PRN PO MILD PAIN (PS 1-4) 05/12/20 11:15 Alprazolam (Xanax) 0.5 mg Q8HP PRN PO ANXIETY 05/12/20 11:15 05/12/20 21:19 Cefazolin Sodium 1 gm/Dextrose 50 ml @ 100 mls/hr Q8H IV 05/12/20 16:00 05/13/20 08:03 Diphenhydramine HCl (Benadryl) 25 mg Q6HP PRN IV ITCHING 05/13/20 00:45 05/13/20 00:57 Fentanyl Citrate (Sublimaze) 25 mcg Q5MP PRN IV PAIN LEVEL 5-10 05/12/20 11:45 05/12/20 12:45 DC 05/12/20 11:40 Ketorolac Tromethamine (ToRADol) 10 mg Q6HP PRN PO MODERATE PAIN (PS 5-7) 05/12/20 11:15 05/17/20 11:14 05/13/20 13:11 Lactated Ringer's 1,000 ml @ 75 mls/hr [id number] IV 05/12/20 11:10 05/13/20 08:59 DC 05/13/20 01:01 Lactated Ringer's 1,000 ml @ 80 mls/hr [id number] IV 05/12/20 11:45 05/12/20 12:45 DC Ondansetron HCl (ZOFRAN INJection) 4 mg Q4H PRN IV NAUSEA OR VOMITING 05/12/20 11:15 Ondansetron HCl (ZOFRAN INJection) 4 mg Q4HP PRN IV NAUSEA OR VOMITING 05/12/20 11:45 05/12/20 12:45 DC Oxycodone HCl (Roxicodone, Oxyir) 5 mg ASDIRECTED PRN PO PAIN LEVEL 1-4 05/12/20 11:45 05/12/20 12:45 DC 05/12/20 13:06 Oxycodone/ Acetaminophen (Percocet 5mg/ 325mg Tablet) 1 tab Q4HP PRN PO PAIN LEVEL 8-10 05/12/20 11:15 05/12/20 21:20 Quetiapine Fumarate (SEROquel) 50 mg QAM PO 05/13/20 09:00 UNV Allergies Coded Allergies: metoclopramide (Verified Allergy, Intermediate, jittery, panicky, 05/04/20) Objective Physical Examination Examination GENERAL APPEARANCE:Patient seen, laying in bed, awake, alert, and oriented. Comfortable, in no acute distress. SKIN: Warm and moist. BREAST: Right and left soft, non-tender incisions intact. JACIEL drains: 35/70 cc/24 hr. NAC: Viable, warm, symmetrical, mild post-op ecchymosis. Left side breast much more swollen than right. Soft. No ecchymosis. Implant palpable. Local tenderness symmetrical. LUNGS: Clear to auscultation bilaterally. No wheezing appreciated. HEART: No chest wall abnormalities. Regular rate and rhythm with no murmurs appreciated. ABDOMEN: Abdomen is soft, non-tender, non-distended. Incision intact. EXTREMITIES: No edema identified. No calf tenderness. Vital Signs Vital Signs Date Time Temp Pulse Resp B/P (MAP) Pulse Ox O2 Delivery O2 Flow Rate FiO2 05/13/20 14:00 98.2 75 17 133/78 (96) 98 Room Air 05/12/20 11:15 2 I&Os I&O- Last 24 Hours up to 6 AM 05/13/20 06:00 Intake Total 2730 ml Output Total 105 ml Balance 2625 ml Impression S/p bilateral breast reconstruction revision. POD 1 Continue with pain management. Left breast swelling will observe overnight. Skin viable. Possible exploration left breast tomorrow. Findings discussed with patient. Plan / VTE VTE Prophylaxis Ordered?: Yes LEDA HICKS DO May 13, 2020 16:46
[2020-05-13] MEDS: MORPHINE 4 MG/ML 1ML VIAL/SYRINGE (J2270) IV PRN ×2 (17:38→22:16)
[2020-05-13 18:00] VITALS: BP 119/75
[2020-05-13] MEDS: ALPRAZolam 0.5 MG TAB PO PRN (21:02)
[2020-05-13 22:00] VITALS: BP 118/75
[2020-05-14] VITALS (7 sets, daily range): BP systolic 91–125; BP diastolic 61–86
[2020-05-14] MEDS: MORPHINE 4 MG/ML 1ML VIAL/SYRINGE (J2270) IV PRN ×4 (03:28→20:45)
[2020-05-14] MEDS: ALPRAZolam 0.5 MG TAB PO PRN ×2 (07:46→23:33)
[2020-05-14] MEDS: KETOROLAC TROMETHAMINE 10 MG TAB PO PRN ×3 (07:46→23:33)
[2020-05-14] MEDS: ceFAZolin SOD 1 GM in D5W MINI-BAG PLUS 50 ML IV SCH ×3 (07:48→23:34)
--- NOTE | 2020-05-14 11:40 | IPNPDOC ---
Subjective General Date Seen: May 14, 2020 Subject Chief Complaint/History The patient is a 40-year-old female admitted with a reason for visit of Malignant Neoplasm, Post Mastectomy. Patient seen and examined at the bedside. The left breast swelling did not change. Drain output 20 cc. Pain controlled. Current Medications Current Medications Current Medications Medications (Trade) Dose Ordered Sig/Mary Carmen Route PRN Reason Start Time Stop Time Status Last Admin Dose Admin Acetaminophen (Tylenol Tab) 650 mg Q6H PRN PO MILD PAIN (PS 1-4) 05/12/20 11:15 Alprazolam (Xanax) 0.5 mg Q8HP PRN PO ANXIETY 05/12/20 11:15 05/14/20 07:46 Cefazolin Sodium 1 gm/Dextrose 50 ml @ 100 mls/hr Q8H IV 05/12/20 16:00 05/14/20 07:48 Diphenhydramine HCl (Benadryl) 25 mg Q6HP PRN IV ITCHING 05/13/20 00:45 05/13/20 00:57 Fentanyl Citrate (Sublimaze) 25 mcg Q5MP PRN IV PAIN LEVEL 5-10 05/12/20 11:45 05/12/20 12:45 DC 05/12/20 11:40 Ketorolac Tromethamine (ToRADol) 10 mg Q6HP PRN PO MODERATE PAIN (PS 5-7) 05/12/20 11:15 05/17/20 11:14 05/14/20 07:46 Lactated Ringer's 1,000 ml @ 75 mls/hr [id number] IV 05/12/20 11:10 05/13/20 08:59 DC 05/13/20 01:01 Lactated Ringer's 1,000 ml @ 80 mls/hr [id number] IV 05/12/20 11:45 05/12/20 12:45 DC Morphine Sulfate (Morphine Sulfate Inj) 4 mg Q4HP PRN IV SEVERE PAIN (PS 8-10) 05/13/20 17:00 05/14/20 07:47 Ondansetron HCl (ZOFRAN INJection) 4 mg Q4H PRN IV NAUSEA OR VOMITING 05/12/20 11:15 05/14/20 03:28 Ondansetron HCl (ZOFRAN INJection) 4 mg Q4HP PRN IV NAUSEA OR VOMITING 05/12/20 11:45 05/12/20 12:45 DC Oxycodone HCl (Roxicodone, Oxyir) 5 mg ASDIRECTED PRN PO PAIN LEVEL 1-4 05/12/20 11:45 05/12/20 12:45 DC 05/12/20 13:06 Oxycodone/ Acetaminophen (Percocet 5mg/ 325mg Tablet) 1 tab Q4HP PRN PO PAIN LEVEL 8-10 05/12/20 11:15 05/12/20 21:20 Quetiapine Fumarate (SEROquel) 50 mg QAM PO 05/13/20 09:00 UNV Allergies Coded Allergies: metoclopramide (Verified Allergy, Intermediate, jittery, panicky, 05/04/20) Objective Physical Examination Examination GENERAL APPEARANCE:Patient seen, laying in bed, awake, alert, and oriented. Comfortable, in no acute distress. SKIN: Warm and moist. BREAST: Right and left soft, non-tender incisions intact. JACIEL drains: L 75cc, R 85 cc/24 hr. NAC: Viable, warm. Left breast larger than Right. Skin viable, intact. LUNGS: Clear to auscultation bilaterally. No wheezing appreciated. HEART: No chest wall abnormalities. Regular rate and rhythm with no murmurs ap preciated. ABDOMEN: Abdomen is soft, non-tender, non-distended. Incision intact. EXTREMITIES: No edema identified. No calf tenderness. Vital Signs Vital Signs Date Time Temp Pulse Resp B/P (MAP) Pulse Ox O2 Delivery O2 Flow Rate FiO2 05/14/20 07:57 18 Room Air 05/14/20 06:00 97.8 64 91/61 (71) 100 05/12/20 11:15 2 I&Os I&O- Last 24 Hours up to 6 AM 05/14/20 06:00 Intake Total 1950 ml Output Total 182 ml Balance 1768 ml Impression S/p bilateral breast reconstruction revision. Left breast increased swelling vs non draining collection. Possible drain malposition. OR today for Exploration Left breast today. Risks, benefits and alternatives discussed with patient, she is ready to proceed. Plan / VTE VTE Prophylaxis Ordered?: Yes LEDA HICKS DO May 14, 2020 11:40
[2020-05-14] MEDS ORDERED: BUPIVACAINE HCL 0.25% 30ML VIAL As Ordered ONE (11:48)
[2020-05-14] MEDS ORDERED: ePHEDrine SULFATE 25 MG/5 ML(5MG/ML) SYRINGE As Ordered ONE ×2 (12:00→12:11)
[2020-05-14] MEDS ORDERED: LACRILUBE (AKWA TEARS) OPHTH OINT 3.5 GM As Ordered ONE (12:03)
[2020-05-14] MEDS ORDERED: ACETAMINOPHEN 1000MG 100ML IV BTL (OFIRMEV) (J0131 PER 10MG) As Ordered ONE (12:06)
[2020-05-14] MEDS ORDERED: BACITRACIN PWD 50,000 UNITS VIAL As Ordered ONE (12:12)
[2020-05-14] MEDS ORDERED: ceFAZolin 1GM VIAL (J0690 PER 500MG) As Ordered ONE (12:12)
--- NOTE | 2020-05-14 13:09 | POST-OPPD ---
Postoperative Procedure Note Date Of Procedure: May 14, 2020 PREOPERATIVE DIAGNOSIS: Left breast asymmetry, s/p breast reconstruction. Possible collection. POSTOPERATIVE DIAGNOSIS: same FINDINGS: Left breast hematoma, drain displacement. No active bleeding. PROCEDURE: Exploration left post reconstructed breast. Irrigation small hemat johnna. SURGEON: Dr Hicks ANESTHESIA: General SPECIMENS: none ESTIMATED BLOOD LOSS: 40 cc REPLACED: none DRAINS: 15 round yakut. COMPLICATIONS: none POSTOPERATIVE CONDITION: stable LEDA HICKS DO May 14, 2020 13:09
[2020-05-14] MEDS ORDERED: fentaNYL 100 MCG/2 ML INJECTION (J3010) IV PRN (13:30)
[2020-05-14] MEDS ORDERED: PERCOCET 5MG/325MG TAB PO PRN (13:30)
[2020-05-14] MEDS ORDERED: LR 1,000 ML IV SCH (13:30)
[2020-05-14] MEDS ORDERED: ONDANSETRON 4MG/2ML VIAL IV PRN (13:30)
--- NOTE | 2020-05-14 17:40 | ROOPDOC ---
[facility] Report Of Operation Report of Operation DATE OF PROCEDURE: 05/14/20 PREOPERATIVE DIAGNOSIS: Left breast asymmetry, s/p breast reconstruction. Possible collection. POSTOPERATIVE DIAGNOSIS: same FINDINGS: Left breast hematoma, drain displacement. No active bleeding. PROCEDURE: Exploration left post reconstructed breast. Irrigation small sana shayy. SURGEON: Dr Hicks ANESTHESIA: General SPECIMENS: none ESTIMATED BLOOD LOSS: 40 cc REPLACED: none DRAINS: 15 round irish. COMPLICATIONS: none POSTOPERATIVE CONDITION: stable Procedure: This is a 40-year-old female status post bilateral breast reconstruction revision with prepectoral reconstruction conversion postop day 2. Patient developed swelling on the left breast overnight with less than adequate drainage from the drain. Patient is brought to the operating room for exploration of the left reconstructed breast. Informed consent was obtained. Risks benefits and alternatives discussed with the patient. Patient brought into the operating room, placed in supine position. General anesthesia is induced. She is prepped and draped in the usual sterile fashion. Old incision was opened on the left side. A small amount of clot was identified and gliding fluid which was evacuated with suction. Area was irrigated with copious amount of bacitracin irrigation solution. Fork Lift Truck Operator is in good condition, artificial dermis is in good condition. No active bleeding identified. Drain was located posteriorly to the implant and repositioned to inferior lateral portion of the breast. Small amount of muscle oozing was identified and controlled with hemostasis and also Surgicel. Surgicel was left in place to the medial and the lateral side of the desktop support specialist. The wound was closed in layers with 3-0 Vicryl, 3-0 Monocryl and 50 plain gut suture. Symmetry was restored. Skin envelope on both breasts are viable, warm, intact. Patient extubated in the operating room without any difficulties, and transferred to , and instilled in stable condition. LEDA HICKS DO May 14, 2020 17:40
[2020-05-15] MEDS: diphenhydrAMINE 50MG/ML VIAL (J1200) IV PRN (00:21)
[2020-05-15] MEDS: PERCOCET 5MG/325MG TAB PO PRN ×2 (00:22→08:30)
[2020-05-15] MEDS: ACETAMINOPHEN TAB 650MG DOSE (2X325MG) PO PRN ×2 (05:30→11:00)
[2020-05-15 06:00] VITALS: BP 97/61
[2020-05-15] MEDS: ceFAZolin SOD 1 GM in D5W MINI-BAG PLUS 50 ML IV SCH (08:31)
--- NOTE | 2020-05-15 09:56 | IPNPDOC ---
Subjective General Date Seen: May 15, 2020 Subject Chief Complaint/History The patient is a 40-year-old female admitted with a reason for visit of Malignant Neoplasm, Post Mastectomy. Patient status post exploration left breast postop day 1. Status post bilateral breast reconstruction revision postop day 2. Doing well, pain controlled with Percocet. Ambulating, tolerating regular diet. Current Medications Current Medications Current Medications Medications (Trade) Dose Ordered Sig/Mary Carmen Route PRN Reason Start Time Stop Time Status Last Admin Dose Admin Acetaminophen (Tylenol Tab) 650 mg Q6H PRN PO MILD PAIN (PS 1-4) 05/12/20 11:15 05/15/20 05:30 Alprazolam (Xanax) 0.5 mg Q8HP PRN PO ANXIETY 05/12/20 11:15 05/14/20 23:33 Cefazolin Sodium 1 gm/Dextrose 50 ml @ 100 mls/hr Q8H IV 05/12/20 16:00 05/15/20 08:31 Diphenhydramine HCl (Benadryl) 25 mg Q6HP PRN IV ITCHING 05/13/20 00:45 05/15/20 00:21 Fentanyl Citrate (Sublimaze) 25 mcg Q5MP PRN IV PAIN LEVEL 5-10 05/12/20 11:45 05/12/20 12:45 DC 05/12/20 11:40 Fentanyl Citrate (Sublimaze) 25 mcg Q5MP PRN IV PAIN LEVEL 5-10 05/14/20 13:30 05/14/20 14:30 DC Ketorolac Tromethamine (ToRADol) 10 mg Q6HP PRN PO MODERATE PAIN (PS 5-7) 05/12/20 11:15 05/17/20 11:14 05/14/20 23:33 Lactated Ringer's 1,000 ml @ 75 mls/hr [id number] IV 05/12/20 11:10 05/13/20 08:59 DC 05/13/20 01:01 Lactated Ringer's 1,000 ml @ 80 mls/hr [id number] IV 05/12/20 11:45 05/12/20 12:45 DC Lactated Ringer's 1,000 ml @ 100 mls/hr Q10H IV 05/14/20 13:30 05/14/20 14:30 DC Morphine Sulfate (Morphine Sulfate Inj) 4 mg Q4HP PRN IV SEVERE PAIN (PS 8-10) 05/13/20 17:00 05/14/20 20:45 Ondansetron HCl (ZOFRAN INJection) 4 mg Q4H PRN IV NAUSEA OR VOMITING 05/12/20 11:15 05/14/20 03:28 Ondansetron HCl (ZOFRAN INJection) 4 mg Q4HP PRN IV NAUSEA OR VOMITING 05/12/20 11:45 05/12/20 12:45 DC Ondansetron HCl (ZOFRAN INJection) 4 mg Q4HP PRN IV NAUSEA OR VOMITING 05/14/20 13:30 05/14/20 14:30 DC Oxycodone HCl (Roxicodone, Oxyir) 5 mg ASDIRECTED PRN PO PAIN LEVEL 1-4 05/12/20 11:45 05/12/20 12:45 DC 05/12/20 13:06 Oxycodone/ Acetaminophen (Percocet 5mg/ 325mg Tablet) 1 tab ASDIRECTED PRN PO PAIN LEVEL 1-4 05/14/20 13:30 05/14/20 14:30 DC Oxycodone/ Acetaminophen (Percocet 5mg/ 325mg Tablet) 1 tab Q4HP PRN PO PAIN LEVEL 8-10 05/12/20 11:15 05/15/20 08:30 Quetiapine Fumarate (SEROquel) 50 mg QAM PO 05/13/20 09:00 UNV Allergies Coded Allergies: metoclopramide (Verified Allergy, Intermediate, jittery, panicky, 05/04/20) Objective Physical Examination Examination GENERAL APPEARANCE:Patient seen, laying in bed, awake, alert, and oriented. Comfortable, in no acute distress. SKIN: Warm and moist. BREAST: Right and left soft, non-tender incisions intact. JACIEL drains: L 70, R 42 cc/24 hr. NAC: Viable, warm, symmetrical, mild post-op ecchymosis, no expanding hematoma. Left breast with residual ecchymosis, improving. Breasts symmetrical. Implants palpable. LUNGS: Clear to auscultation bilaterally. No wheezing appreciated. HEART: No chest wall abnormalities. Regular rate and rhythm with no murmurs appreciated. EXTREMITIES: No edema identified. No calf tenderness. Vital Signs Vital Signs Date Time Temp Pulse Resp B/P (MAP) Pulse Ox O2 Delivery O2 Flow Rate FiO2 05/15/20 09:00 18 Room Air 05/15/20 06:00 97.7 71 97/61 (73) 95 05/14/20 20:45 98.0 I&Os I&O- Last 24 Hours up to 6 AM 05/15/20 05:59 Intake Total 950 ml Output Total 90 ml Balance 860 ml Impression Status post bilateral breast reconstruction revision. Stable for discharge. Continue monitoring drains at home, support parietal times. Percocet prescription for pain control. Follow-up plastic surgery next week. Plan / VTE VTE Prophylaxis Ordered?: Yes LEDA HICKS DO May 15, 2020 09:56
[2020-05-15 10:00] VITALS: BP 119/82
[2020-05-15] MEDS ORDERED: PERCOCET PO (10:03)
[2020-05-15] MEDS: KETOROLAC TROMETHAMINE 10 MG TAB PO PRN (11:00)
[2020-05-15] MEDS ORDERED: AMOX500C PO (12:08)
--- OUTSIDE RECORDS SUMMARY | 2020-05-22 08:35 | CCD ---
Author Author [facility] Organization [facility] Address Unknown Phone Unavailable Care Team Providers Care Rat Trapper Name Role Phone FABIOLA, E LEDA DO Unavailable Unavailable FABIOLA, E LEDA DO Unavailable Unavailable FABIOLA, E LEDA DO Unavailable Unavailable AFBIOLA, E LEDA DO Unavailable Unavailable FABIOLA, E [...] A ZIA MD Unavailable Unavailable EMERTON, A IZA MD Unavailable Unavailable EMERTON, A ZIA MD [...] is protected by Article 27-F of the [facility] Public Health law. If you continue you may have access to information: Regarding HIV / AIDS; Provided by facilities licensed or operated by the [facility] Office of Mental Health; or Provided by the [facility] Office for People With Developmental Disabilities. If such information is present, then the following [facility] mandated warning applies: This information [...] law may result in a fine or shelter sentence or both. A general authorization for the release of medical or other information is NOT sufficient authorization for further disc losure. Allergies and Adverse Reactions Type Description Substance Reaction Status Data Source(s ) metocloperamide metocloperamide metocloperamide Unknown [facility] Encounters Encounter Providers Location Date Indications Data Source(s ) Outpatient Attender: Jeff Brnanon MD Main office - [place] 04/09/2020 01:00:00 PM EST [facility] ([facility] Outpatient Attender: Jeff Brannon MD Main office - [place] 12/26/2019 08:00:00 AM EDT [facility] ([facility]) Outpatient Attender: LEDA Ramirez/Stefan/Rubio/Susan scherer 12/09/2019 01:00:00 PM EDT [facility] ([facility]) Outpatient Referrer: ZIA VERMA MD 08/20/2019 05:56:00 AM EDT [facility] Outpatient Referrer: ZIA VERMA MD 08/15/2019 06:18:00 AM EDT [facility] Outpatient Attender: LEDA Ramirez/Stefan/Rubio/Susan scherer 08/14/2019 10:45:00 AM EDT [facility] ([facility] ) Outpatient Referrer: ZIA VERMA MD 08/14/2019 05:34:00 AM EDT [facility] [address] [place] [address] 08/14/2019 12:00:00 AM EDT eCW1 ([facility]) [facility] [address] [place] [address] 08/05/2019 12:00:00 AM EDT eCW1 ([facility]) Medications Medication Brand Name Start Date Product Form Dose Route Admi nistrative Instructions Pharmacy Instructions Status Indications Reaction Description Data Source(s) Eszopiclone 3 MG Oral Tablet Eszopiclone 04/09/2020 12:00:00 AM EST active [facility] ([facility] ) Zolpidem tartrate 12.5 MG Extended Release Oral Tablet [Ambi en] Ambien CR 02/07/2020 12:00:00 AM EDT ORAL completed [facility] ([facility] ) Mirtazapine 30 MG Oral Tablet Mirtazapine 12/26/2019 12:00:00 AM EDT ORAL active [facility] ([facility] ) Insurance Providers Payer name Policy type / Coverage type Policy ID Covered libertarian ID Covered libertarian's relationship to dyer Policy Dyer Plan Information [employer] [place]/307 [id number] [place] [place]/307 [id number] [employer]CELLUS BCBS B [id number] P [id number] [place] [place]/307 [id number] HU2 [id number] [place] [place] 302/307 [id number] SELF PAY ONLY [id number] SP [id number] [employer] [place] 306/806 [id number] [employer] BCBS B [id number] P [id number] VALUE OPTIONS OUTPATIENT CLAIM [id number] BCBS EMPIRE [place] DIV [id number] [place] [place] 302/307 [id number] [id number] SELF PAY ONLY UNAVAILABLE UNAV AILABLE BLUE CROSS BLUE SHIELD-O/P [id number] 01 [id number] BLUE CROSS BLUE SHIELD-O/P [id number] 01 [id number] BLUE CROSS BLUE SHIELD -CLINIC [id number] EXCELLUS BCBS B [id number] P YND [place] P[place] 302/307 [id number] HU2 [id number] EXCELLUS H [id number] Spouse [id number] EXCELLUS BCBS P [id number] P [id number] EXCELLUS BCBS P [id number] P VYI EXCELLUS H [id number] Spouse [id number] EXCELLUS C [id number] Unkn [id number] SELFPAY 5 UNAVAILABLE 1 UNAVAILA BLE BLUE CROSS CNY 1 [id number] BLUE CROSS CNY 1 [id number] 2 [id number] [place] [place] PPO 302/307 [id number] HU2 [id number] [employer] [place] 306/8 P [id number] P [id number] UNAVAILABLE UNAVAILA BLE Problems, Conditions, and Diagnoses Code Display Name Description Problem Type Effective Dates Data Source(s) 835030066 Migraine without aura, not refractory Mi graine without aura, not refractory Problem 12/26/2019 12:00:00 AM EDT [facility] [id number] Mild recurrent major depression Mild recurrent m ajor depression Problem 12/26/2019 12:00:00 AM EDT [facility] ([facility] ) [id number] Generalized anxiety disorder Generalized anxiety disor carol Problem 12/26/2019 12:00:00 AM EDT [facility] ([facility] ) [id number] Disorders of initiating and maintaining sleep Disorders of initiating and maintaining sleep Problem 12/26/2019 12:00:00 AM EDT [facility] ([facility], ) Z90.13 [id number] Hx of bilateral mastectomy Problem 0 12:00:00 AM EDT [facility] F17.200 [id number] Smoking Problem 08/15/2019 12:00:00 AM ED T [facility]) Z85.3 [id number] Hx of breast cancer Problem 08/15/2019 12:00 :00 AM EDT [facility]) N65.0 [id number] Breast reconstruction deformity Proble m 08/05/2019 12:00:00 AM EDT [facility]CW ([facility]) Results ID Date Data Source [id number] 05/07/2020 02:00:00 PM EST [facility] Name Value Range Interpretation Code Description Data Dulce rce(s) Supporting Document(s) SARS coronavirus 2 RNA Not Detected [facility] [place] This lab was ordered by [facility] and reported by [facility]. Procedure Vital Signs ID Date Data Source UNK Name Value Range Interpretation Code Description Data Source(s) Body surface area Derived from formula 1.52 m2 1.52 m2 [facility] ([facility]) Body weight 52.618 kg 52.618 kg [facility] ([facility]) [place] body weight 110 [lb_av] 110 [lb_av] [facility] ([facility]) Body mass index (BMI) [Ratio] 21.2 kg/m2 21.2 k g/m2 [facility] ([facility]) Body weight 116.00 [lb_av] 116.00 [facility]av[facility] Body height 62 [in_i] 62 [in_i] [facility] ([facility]) 5'2" Body temperature 98.4 [degF] 98.4 [degF] [facility] ([facility]) Respiratory rate 14 /min 14 /min [facility] ( [facility]) Heart rate 74 /min 74 /min [facility] Diastolic blood pressure 66 mm[Hg] 66 mm[Hg] [facility] ([facility]) Systolic blood pressure 98 mm[Hg] 98 mm[Hg] [facility] [place] body weight 110 [lb_av] 110 [lb_av] MED[facility] [...] Diastolic blood pressure 70 mm[Hg] 70 mm[Hg] [facility] ([facility]) Systolic blood pressure 110 mm[Hg] 110 mm[Hg] [facility] ([facility]) Body surface area Derived from formula 1.47 m2 1.47 m2 [facility] ([facility]) Body weight 48.989 kg 48.989 kg [facility] ([facility]) [place] body weight 110 [lb_av] 110 [lb_av] [facility] T ([facility]) Body mass index (BMI) [Ratio] 19.8 kg/m2 19.8 k g/m2 [facility] ([facility]) Body weight 108.00 [lb_av] 108.00 [lb_av] [facility] T ([facility]) Body height 62 [in_i] 62 [in_i] [facility] ([facility]) 5'2" Body temperature 98.2 [degF] 98.2 [degF] [facility] ([facility]) Respiratory rate 16 /min 16 /min [facility] ( [facility]) Heart rate 84 /min 84 /min [facility] ([facility]) Diastolic blood pressure 64 mm[Hg] 64 mm[Hg] [facility]) Systolic blood pressure 118 mm[Hg] 118 mm[Hg] [facility] Body weight 51.313 kg 51.313 kg [facility] ([facility]) Body mass index (BMI) [Ratio] 20.7 kg/m2 20.7 k g/m2 [facility] ([facility]) Body weight 113.12 [lb_av] 113.12 [lb_av] [facility] T ([facility]) Body height 62 [in_i] 62 [in_i] [facility] ([facility]) 5'2" Body temperature 98.1 [degF] 98.1 [degF] [facility] ([facility]) Diastolic blood pressure 60 mm[Hg] 60 mm[Hg] [facility] ([facility]) Systolic blood pressure 110 mm[Hg] 110 mm[Hg] [facility] Diastolic blood pressure 68 mm[Hg] 68 mm[Hg] [facility] Systolic blood pressure 102 mm[Hg] 102 mm[Hg] e CW1 ([facility]) Body temperature 98.2 [degF] 98.2 [degF] [facility] Respiratory rate 16 /min 16 /min eCW1 ([facility]) Heart rate 68 /min 68 /min eCW1 ([facility]) Body mass index (BMI) [Ratio] 20.48 kg/m2 20.48 kg/m2 [facility]) Body height 62 [in_us] 62 [in_us] eCW1 ([facility]) Body weight Measured 112 [lb_av] 112 [lb_av] eC W1 ([facility])
== END 2020-05-15 11:20 | disposition home or self-care (01) ==
LOC: M SDC 06:18 → M MS5PR 06:18 → EDSTATUS 07:30 → M MS5PR 13:10 → M SDC 13:10 → M MS5PR 05-15 11:20
PROVIDERS: ADMIT Plastic Surgery Surgery of the Hand; ATTEND Plastic Surgery Surgery of the Hand
DX: 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 reconstructed breast (principal); L76.32 Postprocedural hematoma of skin and subcutaneous tissue following other procedure; Z80.3 Family history of malignant neoplasm of breast; Z87.891 Personal history of nicotine dependence
CPT/HCPCS: 10140; 19357; 19380; 88300; 88304; 96365; 96366; 96375; 96376; C1789; C9290; J0131; J0690; J1100; J1170; J1200; J2250; J2270; J2370; J2405; J3010; Q4100

== ENCOUNTER → 2020-08-03 | Outpatient (CLI) | payer BC ==
[~2020-08-03] MED LIST changes: +AMOX500C PO; +E-Z-GAS II EFFERVESCENT PACKET (SODIUM BICARB./CITRIC ACID/SIMETHICONE) As Ordered ONE; +E-Z-HD 98% w/w 340GM SUSP BTL As Ordered ONE; +E-Z-PAQUE 96% w/w SUSP 176GM BTL As Ordered ONE; -LR 1,000 ML IV ONE; +PERCOCET PO; -ceFAZolin SOD 1 GM in D5W MINI-BAG PLUS 50 ML IV ONE
--- NOTE | 2020-08-03 10:36 | REP ---
INDICATION: DYSPEPSIA. COMPARISON: 07/09/2012. TECHNIQUE: Real-time sonographic evaluation of right upper quadrant performed. FINDINGS: There are 2 5 mm polyps in the gallbladder, with no evidence of gallstones or gallbladder wall thickening. There is no pericholecystic fluid. There is no intrahepatic or extrahepatic biliary dilatation, common bile duct measures 3 mm in maximum diameter. The liver demonstrates homogeneous echotexture with no gross mass. Liver is mildly enlarged measuring 17.8 cm in length. The pancreas demonstrates homogeneous echotexture with no gross mass. The right kidney demonstrates no hydronephrosis, with a normal size of 11.2 cm in length. No free fluid is seen. IMPRESSION: Two 5 mm polyps in the gallbladder with no evidence of gallstones, gallbladder wall thickening, pericholecystic fluid or biliary dilatation. Mild hepatomegaly. <Electronically signed by Wesley Art > 08/03/20 [id number]
--- NOTE | 2020-08-03 14:31 | REP ---
INDICATION: FUNCTIONAL DYSPEPSIA. COMPARISON: None. TECHNIQUE: The procedure was performed under the direct supervision of Dr. Mejia. The images were reviewed with Dr. Mejia. Liquid barium and gas producing crystals were given in the erect position as well as liquid barium in the prone oblique position in order to perform a double contrast upper GI examination. A combination of fluoroscopy, spot films and last image hold technology was utilized. 1 minutes of fluoro time was utilized for this procedure. FINDINGS: The belt picker film shows no organomegaly or pathological masses. The intestinal gas pattern is non-specific. 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 The oral and pharyngeal stages of deglutition are unremarkable. Esophageal transport is prompt and efficient and there is no esophagitis, stricture, mucosal ring or hiatal hernia. The stomach navarro are normally outlined. The rugal folds are smooth and regular. There is no gastritis neoplasm or ulcer disease. Within the duodenum there are thickened folds which may represent duodenitis. There is no liya ulcer identified. The visualized portion of the proximal small bowel appears normal in course and caliber. IMPRESSION: There are thickened folds in the duodenum which may represent duodenitis. There is no liya ulcer identified. Otherwise, unremarkable double contrast upper GI examination. <Electronically signed by Anam Thomas > 08/03/20 [id number] <Electronically signed by Osman eMjia > 08/03/20 [id number]
== END ==
LOC: M RAD 09:22
PROVIDERS: ATTEND Family Medicine
DX: K82.4 Cholesterolosis of gallbladder (principal); K30 Functional dyspepsia

== ENCOUNTER → 2020-08-20 | Outpatient (CLI) | payer BC ==
[~2020-08-20] MED LIST changes: -E-Z-GAS II EFFERVESCENT PACKET (SODIUM BICARB./CITRIC ACID/SIMETHICONE) As Ordered ONE; -E-Z-HD 98% w/w 340GM SUSP BTL As Ordered ONE; -E-Z-PAQUE 96% w/w SUSP 176GM BTL As Ordered ONE
[2020-08-20 16:20] LABS: BASO # 0.1 10^3/uL (0.0-0.2); BASO % 0.6 % (0.0-1.0); EOS # 0.2 10^3/uL (0.0-0.5); EOS % 1.6 % (0.0-3.0); HEMATOCRIT 45.2 % (36.0-47.0); HEMOGLOBIN 14.9 g/dl (12.0-15.5); LYMPH # 2.6 10^3/uL (1.5-5.0); LYMPH % 28.1 % (24.0-44.0); MEAN CORPUSCULAR HEMOGLOBIN 29.9 pg (27.0-33.0); MEAN CORPUSCULAR VOLUME 90.6 fl (80.0-96.0); MONO # 0.5 10^3/uL (0.0-0.8); MONO % 5.1 % (2.0-8.0); NEUTROPHILS # 5.9 10^3/uL (1.5-8.5); PLATELET COUNT, AUTOMATED 303 10^3/uL (150-450); RED BLOOD COUNT 4.99 10^6/uL (4.00-5.40); WHITE BLOOD COUNT 9.2 10^3/uL (4.0-10.0)
[2020-08-20 16:49] LABS: ALBUMIN 3.9 GM/DL (3.2-5.2); ALT/SGPT 16 U/L (12-78); BILIRUBIN,TOTAL 0.2 MG/DL (0.2-1.0); BLOOD UREA NITROGEN 13 MG/DL (7-18); CARBON DIOXIDE LEVEL 26 MEQ/L (21-32); CHLORIDE LEVEL 107 MEQ/L (98-107); COMPLEMENT C3 121 MG/DL (90-180); COMPLEMENT C4 39 MG/DL (10-40); CREATININE FOR GFR 0.58 MG/DL (0.55-1.30); GLOMERULAR FILTRATION RATE > 60.0 (>58); GLUCOSE, FASTING 87 MG/DL (70-100); POTASSIUM SERUM 4.4 MEQ/L (3.5-5.1); RHEUMATOID FACTOR QUANT < 10.0 IU/ML (<15.0); SODIUM LEVEL 138 MEQ/L (136-145); THYROXINE (T4) 5.7 UG/DL (4.5-12.0); TOTAL PROTEIN 7.3 GM/DL (6.4-8.2)
[2020-08-20 16:52] LABS: THYROID PEROXIDASE ANTIBODY < 28.0 U/ML (<60.0)
[2020-08-20 16:53] LABS: THYROGLOBULIN ANTIBODY < 15.0 U/ML (<60.0)
[2020-08-20 17:11] LABS: ERYTHROCYTE SEDIMENTATION RATE 7 mm/hr (0-20)
== END ==
LOC: M WUC 10:57
PROVIDERS: ATTEND Allergy & Immunology Allergy
DX: L50.1 Idiopathic urticaria (principal)

== ENCOUNTER → 2020-09-16 | Outpatient (CLI) | payer BC ==
[~2020-09-16] MED LIST changes: +TRAZ-257 PO
[2020-09-16 12:10] LABS: HEMATOCRIT 43.5 % (36.0-47.0); HEMOGLOBIN 14.2 g/dl (12.0-15.5); MEAN CORPUSCULAR HEMOGLOBIN 29.2 pg (27.0-33.0); MEAN CORPUSCULAR HGB CONC 32.6 g/dl (32.0-36.5); MEAN CORPUSCULAR VOLUME 89.3 fl (80.0-96.0); PLATELET COUNT, AUTOMATED 271 10^3/uL (150-450); RED BLOOD COUNT 4.87 10^6/uL (4.00-5.40)
[2020-09-16 14:05] LABS: ALBUMIN 3.8 GM/DL (3.2-5.2); ALT/SGPT 19 U/L (12-78); BILIRUBIN,TOTAL 0.5 MG/DL (0.2-1.0); BLOOD UREA NITROGEN 7 MG/DL (7-18); CALCIUM LEVEL 9.5 MG/DL (8.5-10.1); CARBON DIOXIDE LEVEL 27 MEQ/L (21-32); CHLORIDE LEVEL 106 MEQ/L (98-107); CREATININE FOR GFR 0.58 MG/DL (0.55-1.30); GLOMERULAR FILTRATION RATE > 60.0 (>58); GLUCOSE, FASTING 88 MG/DL (70-100); POTASSIUM SERUM 4.2 MEQ/L (3.5-5.1); SODIUM LEVEL 141 MEQ/L (136-145); TOTAL PROTEIN 6.9 GM/DL (6.4-8.2)
== END ==
LOC: M WUC 10:29
PROVIDERS: ATTEND Family Medicine
DX: Z02.9 Encounter for administrative examinations, unspecified (principal)

== ENCOUNTER → 2020-09-17 | Outpatient (CLI) | payer BC | LOC: M LABSMTC 09:52 | PROVIDERS: ATTEND Anesthesiology | DX: Z01.818 Encounter for other preprocedural examination (principal); Z20.822 Contact with and (suspected) exposure to COVID-19 ==

== ENCOUNTER 2020-09-22 06:05 | Day surgery (SDC) | payer BC ==
[~2020-09-22] VITALS: Ht 154.9 cm; Wt 50.8 kg
[~2020-09-22 06:05] MED LIST changes: +LR 1,000 ML IV ONE; +ceFAZolin SOD 1 GM in D5W MINI-BAG PLUS 50 ML IV ONE
[2020-09-22] MEDS ORDERED: LIDOCAINE 2% 100MG/5ML SDV (FOR ANES.) As Ordered ONE (07:20)
[2020-09-22] MEDS ORDERED: propofoL 200 MG/20 ML VIAL As Ordered ONE (07:20)
[2020-09-22] MEDS ORDERED: dexameTHASONE 4 MG/ML 1ML VIAL (J1100 PER 1MG) As Ordered ONE (07:20)
[2020-09-22] MEDS ORDERED: ROCURONIUM BROMIDE 50 MG/5 ML VIAL As Ordered ONE (07:20)
[2020-09-22] MEDS ORDERED: fentaNYL 250 MCG/5 ML INJECTION (J3010) As Ordered ONE (07:21)
[2020-09-22] MEDS ORDERED: MIDAZOLAM INJ 2MG/2ML VIAL (J2250 PER 1MG) As Ordered ONE (07:21)
[2020-09-22] MEDS ORDERED: BUPIVACAINE LIPOSOME/PF 1.3% 20ML VIAL (13.3MG/ML)(EXPAREL)(C9290 PER1MG) As Ordered ONE (07:25)
[2020-09-22] MEDS ORDERED: BACITRACIN PWD 50,000 UNITS VIAL As Ordered ONE (07:25)
[2020-09-22] MEDS ORDERED: SUGAMMADEX SODIUM 500 MG/5 ML VIAL (BRIDION) As Ordered ONE (08:20)
[2020-09-22] MEDS ORDERED: HYDROmorphone HCL 2 MG/ML 1ML VIAL (J1170) As Ordered ONE (08:20)
[2020-09-22] MEDS ORDERED: ACETAMINOPHEN 1000MG 100ML IV BTL (OFIRMEV) (J0131 PER 10MG) As Ordered ONE (08:20)
[2020-09-22] MEDS ORDERED: ONDANSETRON 4MG/2ML VIAL As Ordered ONE (08:20)
[2020-09-22] MEDS ORDERED: ePHEDrine SULFATE 25 MG/5 ML(5MG/ML) SYRINGE As Ordered ONE ×2 (08:20→08:45)
[2020-09-22] MEDS ORDERED: LACRILUBE (AKWA TEARS) OPHTH OINT 3.5 GM As Ordered ONE (08:25)
--- NOTE | 2020-09-22 09:18 | POST-OPPD ---
Postoperative Procedure Note Date Of Procedure: Sep 22, 2020 PREOPERATIVE DIAGNOSIS: Breast reconstruction. Deformity of reconstructed breast. H/p Right breast cancer. POSTOPERATIVE DIAGNOSIS: same FINDINGS: expanders 275cc. PROCEDURE: Exchange bilateral expanders to permanent implants. SURGEON: Dr Hicks ANESTHESIA: General SPECIMENS: Right and left telecommunications officer for gross path only ESTIMATED BLOOD LOSS: 20 cc REPLACED: none DRAINS: none COMPLICATIONS: none POSTOPERATIVE CONDITION: stable LEDA HICKS DO Sep 22, 2020 09:18
--- NOTE | 2020-09-22 09:19 | ROOPDOC ---
[facility] Report Of Operation Report of Operation DATE OF PROCEDURE: 09/22/20 PREOPERATIVE DIAGNOSIS: Breast reconstruction. Deformity of reconstructed breast. H/p Right breast cancer. POSTOPERATIVE DIAGNOSIS: same FINDINGS: expanders 275cc. PROCEDURE: Exchange bilateral expanders to permanent implants. SURGEON: Dr Hicks ANESTHESIA: General SPECIMENS: Right and left back hoe machine operator for gross path only ESTIMATED BLOOD LOSS: 20 cc REPLACED: none DRAINS: none COMPLICATIONS: none IMPLANTS: 285 cc smooth Xtra gel round high profile Liberty implants x 2. POSTOPERATIVE CONDITION: stable Procedure: This is a 40-year-old female status post bilateral mastectomies with reconstruction in another institution. Patient had animation deformity which was corrected here and converted to prepectoral reconstruction. Now here for exchange of expanders to permanent implants. Risk, benefits and alternatives of the procedure discussed with the patient in detail and she is ready to proceed. The day of surgery. Informed consent was confirmed and then patient was brought into the operating room, placed in supine position. General anesthesia was induced. She was given preoperative antibiotics and sequential stockings were placed in the lower calves. She is prepped and draped in the usual sterile fashion. We started our procedure on the right side. Lateral horizontal incision was outlined, including the old scar which was excised using 10 blade. Sharp dissection with electrocautery carried out until the pectoralis muscle fibers and encountered and small flap created undermining superiorly. Horizontal incision carried out through the pocket. 275 mL back hoe machine operator was identified completely intact. It was deflated and removed without difficulties. Pocket was evaluated under direct vision with lighted retractor and open capsulotomy performed using electrocautery. Hemostasis was obtained using electrocautery as well. Inferior lateral portion of the pocket has irrigated. 285 mL sizer was introduced into the pocket and proved to be perfect fit. 285 mL extra fill Liberty high profile implant. Implant was introduced at the table in sterile conditions and soaked in bacitracin irrigation. Then implant was introduced into the pocket without difficulties with no touch technique using Sweeney funnel. The pocket was closed in layers with interrupted 3-0 Vicryl and 3-0 Monocryl sutures. Then we turn our attention to the left side, Lateral horizontal incision was outlined, including the old scar which was excised using 10 blade. Sharp dissection with electrocautery carried out until the pectoralis muscle fibers and encountered and small flap created undermining superiorly. Horizontal incision carried out through the pocket. 275 mL back hoe machine operator was identified completely intact. It was deflated and removed without difficulties. Pocket was evaluated under direct vision with lighted retractor and open capsulotomy performed using electrocautery. Hemostasis was obtained using electrocautery as well. Inferior lateral portion of the pocket has irrigated. 285 mL sizer was introduced into the pocket and proved to be perfect fit. 285 mL extra fill Liberty high profile implant. Implant was introduced at the table in sterile conditions and soaked in bacitracin irrigation. Then implant was introduced into the pocket without difficulties with no touch technique using Sweeney funnel. The pocket was closed in layers with interrupted 3-0 Vicryl and 3-0 Monocryl sutures. Good symmetry achieved between the breasts. Prinio dressing applied to the incision followed by a bulky dressing and a surgical bra. Patient extubated without any difficulties and transferred to recovery room in stable condition. LEDA HICKS DO Sep 22, 2020 09:19
[2020-09-22] MEDS ORDERED: TRAM50TA2 PO (09:24)
[2020-09-22] MEDS ORDERED: HYDROMORPHONE HCL 0.5 MG/ 0.5 ML SYRINGE (J1170 PER 1) IV PRN (09:30)
[2020-09-22] MEDS ORDERED: oxyCODONE 5MG TAB PO PRN (09:30)
[2020-09-22] MEDS ORDERED: ONDANSETRON 4MG/2ML VIAL IV PRN (09:30)
[2020-09-22] MEDS ORDERED: LR 1,000 ML IV SCH (09:30)
[2020-09-22] MEDS ORDERED: fentaNYL 100 MCG/2 ML INJECTION (J3010) IV PRN (09:30)
[2020-09-22 10:47] VITALS: BP 139/86
== END 2020-09-22 10:51 | disposition home or self-care (01) ==
LOC: M SDC 06:05
PROVIDERS: ATTEND Plastic Surgery Surgery of the Hand
DX: 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 reconstructed breast (principal); Z98.82 Breast implant status; Z90.13 Acquired absence of bilateral breasts and nipples; Z85.3 Personal history of malignant neoplasm of breast; G47.09 Other insomnia; Z79.899 Other long term (current) drug therapy; Z88.8 Allergy status to other drugs, medicaments and biological substances; F17.210 Nicotine dependence, cigarettes, uncomplicated
CPT/HCPCS: 11970; 88300; C9290; J0131; J0690; J1100; J1170; J2250; J2405; J3010; L8600

== ENCOUNTER → 2021-02-24 | Outpatient (CLI) | payer BC ==
[~2021-02-24] MED LIST changes: -LR 1,000 ML IV ONE; +TRAM50TA2 PO; -ceFAZolin SOD 1 GM in D5W MINI-BAG PLUS 50 ML IV ONE
== END ==
LOC: M LABSMTC 09:07
PROVIDERS: ATTEND Anesthesiology
DX: Z01.818 Encounter for other preprocedural examination (principal); Z11.52 Encounter for screening for COVID-19

== ENCOUNTER 2021-03-01 13:00 | Day surgery (SDC) | payer BC ==
[~2021-03-01] VITALS: Ht 154.9 cm; Wt 53.5 kg
[~2021-03-01 13:00] MED LIST changes: +NS 1,000 ML IV ONE
--- OUTSIDE RECORDS SUMMARY | 2021-03-01 13:04 | CCD ---
Author Author [facility] Organization [facility] Address Unknown Phone Unavailable Care Team Providers Care Warp Spinner Name Role Phone JERARDO AGEE MD Unavailable Unavailable ANUEL, JERARDO THAKUR Unavailable Unavailable REINDL, JERARDO THAKUR Unavailable Unavailable REINDL, JERARDO THAKUR Unavailable Unavailable REININGE, JERARDO THAKUR Unavailable Unavailable ANUEL, JERARDO THAKUR Unavailable Unavailable ANUEL, JERARDO THAKUR Unavailable Unavailable ANUEL, JERARDO THAKUR Unavailable Unavailable REINJERARDO ALCAZAR MD Unavailable Unavailable ANUEL, JERARDO THAKUR Unavailable Unavailable ANUEL, JERARDO THAKUR Unavailable Unavailable REININGE, JERARDO THAKUR Unavailable Unavailable ANUEL, JERARDO THAKUR Unavailable Unavailable JERARDO AGEE MD Unavailable Unavailable REINJERARDO ALCAZAR MD Unavailable Unavailable REINDLJERARDO MD Unavailable Unavailable REINJERARDO ALCAZAR MD Unavailable Unavailable REINJERARDO ALCAZAR MD Unavailable Unavailable JERARDO AGEE MD Unavailable Unavailable REININGE, JERARDO THAKUR Unavailable Unavailable REINJERARDO ALCAZAR MD Unavailable Unavailable REININGE, JERARDO THAKUR Unavailable Unavailable ANUEL, JERARDO THAKUR Unavailable Unavailable ANUEL, JERARDO THAKUR Unavailable Unavailable ANUEL, JERARDO THAKUR Unavailable Unavailable REININGE, JERARDO THAKUR Unavailable Unavailable ANUEL, JERARDO THAKUR Unavailable Unavailable ANUEL, JERARDO THAKUR Unavailable Unavailable ANUEL, JERARDO THAKUR Unavailable Unavailable ANUEL, JERARDO THAKUR Unavailable Unavailable ANUEL, JERARDO THAKUR Unavailable Unavailable ANUEL, JERARDO THAKUR Unavailable Unavailable REININGE, JERARDO THAKUR Unavailable Unavailable REINJERARDO ALCAZAR MD Unavailable Unavailable REINDL, JERARDO THAKUR Unavailable Unavailable REINDL, JERARDO MD Unavailable Unavailable JERARDO AGEE MD Unavailable Unavailable JERARDO AGEE MD Unavailable Unavailable JERARDO AGEE MD Unavailable Unavailable JERARDO AGEE MD Unavailable Unavailable JERARDO AGEE MD Unavailable Unavailable JERARDO AGEE MD Unavailable Unavailable CHROSTOWSKIREFUGIORICKEY MD Unavailable Unavailable CHROSTOWSKI RICKEY MD Unavailable Unavailable CHROSTOWSKI, RICKEY MD Unavailable Unavailable CHROSTOWSKI, RICKEY MD Unavailable Unavailable CHROSTOWSKI, RICKEY MD Unavailable Unavailable CHROSTOWSKI, RICKEY MD Unavailable Unavailable CHROSTOWSKI, RICKEY MD Unavailable Unavailable CHROSTOWSKI, RICKEY MD Unavailable Unavailable CHROSTOWSKI, RICKEY MD Unavailable Unavailable CHROSTOWSKI, RICKEY MD Unavailable Unavailable CHROSTOWSKI, RICKEY MD Unavailable Unavailable CHROSTOWSKI RICKEY MD Unavailable Unavailable CHROSTOWSKI RICKEY MD Unavailable Unavailable CHROSTOWSKI RICKEY MD Unavailable Unavailable CHROSTOWSKI RICKEY MD Unavailable Unavailable CHROSTOWSKI, RICKEY MD Unavailable Unavailable CHROSTOWSKI RICKEY MD Unavailable Unavailable CHROSTOWSKI RICKEY MD Unavailable Unavailable CHROSTOWSKI RICKEY MD Unavailable Unavailable CHROSTOWSKI, RICKEY MD Unavailable Unavailable CHROSTOWSKI, RICKEY MD Unavailable Unavailable CHROSTOWSKI, RICKEY MD Unavailable Unavailable CHROSTOWSKI, RICKEY MD Unavailable Unavailable CHROSTOWSKI, RICKEY MD Unavailable Unavailable CHROSTOWSKI, RICKEY MD Unavailable Unavailable CHROSTOWSKI, RICKEY MD Unavailable Unavailable CHROSTOWSKI RICKEY MD Unavailable Unavailable CHROSTOWSKI RICKEY MD Unavailable Unavailable CHROSTOWSKI, RICKEY MD Unavailable Unavailable CHROSTOWSKI RICKEY MD Unavailable Unavailable CHROSTOWSKI, RICKEY MD Unavailable Unavailable CHROSTOWSKI, RICKEY MD Unavailable Unavailable CHROSTOWSKI, RICKEY MD Unavailable Unavailable CHROSTOWSKI, RICKEY MD Unavailable Unavailable CHROSTOWSKI, RICKEY MD Unavailable Unavailable CHROSTOWSKI, RICKEY MD Unavailable Unavailable CHROSTOWSKI, RICKEY MD Unavailable Unavailable CHROSTOWSKI, RICKEY MD Unavailable Unavailable CHROSTOWSKI, RICKEY MD Unavailable Unavailable Jeff Brannon MD Unavailable Unavailable Jeff Brannon MD Unavailable Unavailable Jeff Brannon MD Unavailable Unavailable Jeff Brannon MD Unavailable Unavailable Jeff Brannon MD Unavailable Unavailable Jeff Brannon MD Unavailable Unavailable Jeff Brannon MD Unavailable Unavailable Jeff Brannon MD Unavailable Unavailable Ali, Jeff MD Unavailable [...] Unavailable Unavailable Ali, Jeff MD Unavailable Unavailable FABIOLA, E LEDA DO Unavailable [...] Unavailable FABIOLA, E LEDA DO Unavailable Unavailable Justice, M Christopher PA-C Unavailable Unavailable Justice, M Christopher PA-C Unavailable Unavailable Justice, M Christopher PA-C Unavailable Unavailable Justice, M Christopher PA-C Unavailable Unavailable Justice, M Christopher PA-C Unavailable Unavailable Justice, M Christopher PA-C Unavailable Unavailable Justice, M Christopher PA-C Unavailable Unavailable Justice, M Christopher PA-C Unavailable Unavailable Justice, M Christopher PA-C Unavailable Unavailable Justice, M Christopher PA-C Unavailable Unavailable Justice, M Christopher PA-C Unavailable Unavailable Justice, M Christopher PA-C Unavailable Unavailable Justice, M Christopher PA-C Unavailable Unavailable Justice, M Christopher PA-C Unavailable Unavailable Justice, M Christopher PA-C Unavailable Unavailable Justice, M Christopher PA-C Unavailable Unavailable Justice, M Christopher PA-C Unavailable Unavailable Justice, M Christopher PA-C Unavailable Unavailable Justice, M Christopher PA-C Unavailable Unavailable Justice, M Christopher PA-C Unavailable Unavailable Justice, M Christopher PA-C Unavailable Unavailable Justice, M Christopher PA-C Unavailable Unavailable Justice, M Christopher PA-C Unavailable Unavailable Justice, M Christopher PA-C Unavailable Unavailable Justice, M Christopher PA-C Unavailable Unavailable Justice, M Christopher PA-C Unavailable Unavailable Re-disclosure Warning The records that [...] is protected by Article 27-F of the [facility] Public Health law. If you continue you may have access to information: Regarding HIV / AIDS; Provided by facilities licensed or operated by the [facility] Office of Mental Health; or Provided by the [facility] Office for People With Developmental Disabilities. If such information is present, then the following [facility] mandated warning applies: This information has been [...] law may result in a fine or fpc sentence or both. A general authorization for the release of medical or other information is NOT sufficient authorization for further disc losure. Encounters Encounter Providers Location Date Indications Data Source(s ) Outpatient Attender: JERARDO Otero/Stefan/Rubio/Rein inge 11/25/2020 11:00:00 AM EDT [facility] ([facility] Outpatient Attender: Ronny Justice PA-C 11/21/2020 07:59:20 PM EDT - 11/21/2020 10:11:24 PM EDT [facility] ([facility]) Office Visit Attender: LEDA Ramirez/Stefan/Rubio/Reind l 10/23/2020 09:45:00 AM EDT [facility] ([facility]) Office Visit Attender: LEDA Ramirez/Stefan/Rubio/Reind l 09/28/2020 11:30:00 AM EDT [facility] ([facility]) Outpatient Attender: Jeff Brannon MD Main office [facility] 09/10/2020 02:00:00 PM EDT [facility] ([facility]) Outpatient Attender: RICKEY MASON MD Main Office 08/20/2020 09:30:00 AM EDT [facility] ([facility] [place] [address] [address] 08/12/2020 12:00:00 AM EDT [facility]) Office Visit Attender: LEDA Ramirez/Stefan/Rubio/Milagrosd l 07/20/2020 10:00:00 AM EDT [facility] Outpatient Attender: Jeff Brannon MD Main office - [place] 06/16/2020 12:45:00 PM EST [facility] ([facility], ) Office Visit Attender: LEDA HICKS DO [place]anna/[place]/Rubio/Reind l 06/10/2020 08:15:00 AM EST [facility] ([facility] Office Visit Attender: LEDA HIKCS DO Shanna/[place]/Rubio/Reind l 05/27/2020 12:45:00 PM EST [facility] ([facility] Office Visit Attender: LEDA HICKS DO Shanna/[place]/Rubio/Reind l 05/22/2020 02:00:00 PM EST [facility] ([facility] Office Visit Attender: LEDA HICKS DO Shanna/[place]/Rubio/Reind l 05/20/2020 12:45:00 PM EST [facility] ([facility], ) [place] [address] [address] 05/14/2020 12:00:00 AM EST eCW1 ([facility]) Outpatient Attender: Jeff Brannon MD Main office - [place] 04/09/2020 01:00:00 PM EST [facility] ([facility]) Immunizations Vaccine Date Status Description Data Source(s) COVID-19 VACCINE Pfizer 12/08/2020 12:00:00 AM EDT completed [facility] Vaccine Series Complete: YESThis Data wa s Submitted to [facility] Via [employer]. COVID-19 VACCINE Pfizer 11/17/2020 12:00:00 AM EDT completed [facility] Vaccine Series Complete: NOThis Data was Submitted to [facility] Via [employer]. Medications Medication Brand Name Start Date Product Form Dose Route Admi nistrative Instructions Pharmacy Instructions Status Indications Reaction Description Data Source(s) Omeprazole 40 MG Delayed Release Oral Capsule Omeprazole 11/25/2020 12:00:00 AM EDT ORAL active [facility] ([facility], ) cetirizine hydrochloride 10 MG Oral Tablet Cetirizine HCL 08/20/2020 12:00:00 AM EDT active [facility] Trazodone Hydrochloride 100 MG Oral Tablet Trazodone HCL 06/16/2020 12:00:00 AM EST ORAL completed [facility] ([facility], ) Docusate Sodium 100 MG Oral Capsule [Colace] Colace 03/2021 12:00:00 AM EST ORAL completed [facility] ([facility], ) Amoxicillin 500 MG Oral Capsule Amoxicillin 05/22/2020 12:00:00 AM EST ORAL completed [facility] ([facility], ) Acetaminophen 325 MG / Oxycodone Hydrochloride 5 MG Or al Tablet [Percocet] Percocet 05/22/2020 12:00:00 AM EST ORAL completed [facility] ([facility], ) Zolpidem tartrate 12.5 MG Extended Release Oral Tablet [Ambi en] Ambien CR 04/23/2020 12:00:00 AM EST ORAL completed [facility] ([facility], ) Eszopiclone 3 MG Oral Tablet Eszopiclone 04/09/2020 12:00:00 AM EST completed [facility] ([facility], ) Zolpidem tartrate 12.5 MG Extended Release Oral Tablet [Ambi en] Ambien CR 02/07/2020 12:00:00 AM EDT ORAL completed [facility] ([facility], ) Insurance Providers Payer name Policy type / Coverage type Policy ID Covered constitution party ID Covered constitution party's relationship to ricardo Policy Ricardo Plan Information [facility] [id number] [facility] [id number] [place]/[id number] [place]/[id number] [facility] [id number] [place]/307 [id number] BLUE CROSS CNY 1 [id number] EXCELLUS C [id number] Unkn [id number] EXCELLUS H [id number] Spouse [id number] BL[employer]OSS CNY 1 [id number] EXCELLUS H [id number] Spouse [id number] Excell[employer] Blue Cross and Blue Shield - [place] Blue Cross/B lue Shield [id number] Spouse [id number] SELF PAY ONLY UNAVAILABLE UNAV AILABLE BLUE CROSS BLUE SHIELD-O/P [id number] 01 [id number] BLUE CROSS BLUE SHIELD-O/P [id number] 01 [id number] BLUE CROSS BLUE SHIELD -CLINIC [id number] EXCELLUS BCBS B [id number] P YND EXCELLUS BCBS P [id number] P YND EXCELLUS BCBS P [id number] P VYI SELFPAY 5 UNAVAILABLE 1 UNAVAILA BLE BCBS [place] 306/8 P [id number] P [id number] [employer] P[place] 302/307 [id number] [id number] O UNAVAILABLE UNAVAILA BLE BC[place] 800 [id number] BCBS [place] [id number] [place] 306/806 [id number] HU2 [id number] [place] PPO 302/307 [id number] EXCELLUS BCBS B [id number] P [id number] [place] PPO 302/307 [id number] HU2 [id number] [place] PPO 302/307 [id number] [id number] SELF PAY ONLY [id number] SP [id number] EXCELLUS BCBS B [id number] P [id number] [employer] OUTPATIENT CLAIM [id number] Problems, Conditions, and Diagnoses Code Display Name Description Problem Type Effective Dates Data Source(s) I73.00 Raynaud's disease Raynaud's disease Problem 06/16/2020 12:00:00 AM EST [facility] ([facility], ) Surgeries/Procedures Procedure Description Date Indications Data Source(s) OFFICE OUTPATIENT NEW 45 MINUTES 11/25/2020 12:00:00 A M EDT [facility] ([facility], ) REPLACEMENT TISS MOLD STRIPPER PERMANENT PROSTHESIS 021 12:00:00 AM EDT [facility] ([facility], ) PERCUTANEOUS TESTS W/ALLERGENIC EXTRACTS 08/20/2020 12 :00:00 AM EDT [facility] ([facility]) IMPLNT BIO IMPLNT FOR SOFT TISSUE REINFORCEMENT 2020 12:00:00 AM EST [facility] ([facility], ) REVISION RECONSTRUCTED BREAST 05/12/2020 12:00:[address] [facility] ([facility], ) Results ID Date Data Source [id number] 09/22/2020 08:49:00 AM EDT [facility] ([facility]) Name Value Range Interpretation Code Description Data Dulce rce(s) Supporting Document(s) Surgical pathology study Laboratory test result [facility] ([facility], ) FINAL DIAGNOSIS A - Tissue dry paste supervisor, right, removal: For gross examination only. B - Tissue dry paste supervisor, left, removal: For gross examination only. 09/23/2020 - 131 CLINICAL DIAGNOSIS Bilateral breast acquired deformity 09/22/2020 - 1520 GROSS DIAGNOSIS A - Received in formalin labeled "right tissue dry paste supervisor for ID only" consists of a breast tissue dry paste supervisor measuring 11.5 x 10.0 x 1.0 cm with the following writing "Yamile, [id number], [id number]" for gross examination only. B - Received in formalin labeled "left tissue dry paste supervisor for ID only" consists of a breast tissue dry paste supervisor measuring 11.5 x 10.0 x 2.5 cm with the following writing "Yamile, [id number], [id number]" for gross examination only. -SV 09/22/2020 - 1520 Signed ISIS MOYA MD 09/23/2020 1316 ID Date Data Source [id number] 09/17/2020 10:15:00 AM EDT [facility] Name Value Range Interpretation Code Description Data Dulce rce(s) Supporting Document(s) SARS-CoV-2 (COVID-19) RNA [Presence] in Respiratory specimen by ERIC with probe detection Not Detected [facility] This lab was ordered by [facility] and reported by [facility]. ID Date Data Source [id number] 08/20/2020 10:58:00 AM EDT [facility] ([facility]) Name Value Range Interpretation Code Description Data Dulce rce(s) Supporting Document(s) Rheumatoid factor [Units/volume] in Serum or Plasma Laboratory t est result Normal (applies to non-numeric results) [facility] ([facility]) Fc epsilon RI + RII Ab [Units/volume] in Serum 3.8 Normal (applies to non- numeric results) [facility] ([facility] ) The CU Index(R) test is the second [facility] Functional Anti-FceR test. Patients with a CU Index(R) greater than or equal to 10 have basophil reactive factors in their serum which supports an autoimmune basis for disease. *This test was developed and its performance characteristics determined by [facility]. It has not been cleared or approved by the U.S. Food and Drug Administration. Tryptase [Mass/volume] in Serum or Plasma 7.2 ug/L 2.2-13 .2 Normal (applies to non-numeric results) [facility]) ID Date Data Source [id number] 08/20/2020 10:58:00 AM EDT [facility] ([facility]) Name Value Range Interpretation Code Description Data Dulce rce(s) Supporting Document(s) Laboratory test finding (navigational concept) Laboratory test r esult Normal (applies to non-numeric results) [facility] ([facility]) ID Date Data Source [id number] 08/20/2020 10:58:00 AM EDT [facility] ([facility]) Name Value Range Interpretation Code Description Data Dulce rce(s) Supporting Document(s) Complement C3 [Mass/volume] in Serum or Plasma 121 mg/dL 9 0-180 Normal (applies to non-numeric results) [facility] ([facility]) Complement C4 [Mass/volume] in Serum or Plasma 39 mg/dL 1 0-40 Normal (applies to non-numeric results) [facility] [place]) Complement total hemolytic CH50 [Units/volume] in Seru m or Plasma Laboratory test result Normal (applies to non-numeric results) [facility] ([facility]) Age Male Female 1 - 30 days Not Estab. Not E stab. 31 days - 6 months >32 >20 7 months - 17 years >39 >39 >17 years >41 >41 NOTE: The adult (">17 years") reference interval range is used to flag abnormals on this report. If the patient is 17 years old or younger, use the table above to determine out of range values. Performed at: [facility] [address] [facility] [id number] Scouring Machine Tender: Miri Thomas PhD, Phone: [phone] Performed at: - [facility] [address] [id number] Scouring Machine Tender: Darian Donaldson MD, Phone: [phone] Performed at: - [facility] [address] [id number] Scouring Machine Tender: Robyn Funes MD, Phone: [phone] Triiodothyronine (T3) [Mass/volume] in Serum or Plasma 112.0 ng/ dL 60.0-181.0 Normal (applies to non-numeric results) [facility] ([facility]) Thyrotropin [Units/volume] in Serum or Plasma 1.180 uIU/ML 0. 358-3.740 Normal (applies to non-numeric results) [facility] ([facility]) Thyroglobulin Ab [Units/volume] in Serum or Plasma Laboratory te st result Normal (applies to non-numeric results) [facility] ([facility]) Thyroxine (T4) [Mass/volume] in Serum or Plasma 5.7 ug/dL 4.5-12.0 Normal (applies to non-numeric results) [facility] ([facility]) Thyroperoxidase Ab [Units/volume] in Serum or Plasma Laboratory test result Normal (applies to non-numeric results) [facility] ([facility]) ID Date Data Source [id number] 08/20/2020 10:58:00 AM EDT [facility] ([facility]) Name Value Range Interpretation Code Description Data Dulce rce(s) Supporting Document(s) Laboratory test finding (navigational concept) 13 mg/dL 7 -18 Normal (applies to non-numeric results) [facility] Laboratory test finding (navigational concept) 87 mg/dL 7 0-100 Normal (applies to non-numeric results) [facility] ([facility]) Laboratory test finding (navigational concept) Laboratory test r esult Normal (applies to non-numeric results) [facility] ([facility]) <content>Units are mL/min/1.73 m2</content>
<content></content>
<content>Chronic Kidney Disease Staging per NK[facility]:</content>
<content></content>
<content>Stage I & II GFR >=60 Normal to Mildly Decreased</content>
<content>Stage III GFR 30- 59 Moderately Decreased</content>
<content>Stage IV GFR 15-29 Severely Decreased</content>
<content>Stage V GFR <15 Very Little GFR Left</content>
<content>ESRD GFR <15 on QUARTER BACKER</content>
<content></content> Laboratory test finding (navigational concept) 0.58 mg/dL 0 .55-1.30 Normal (applies to non-numeric results) [facility] ([facility]) Laboratory test finding (navigational concept) 138 meq/L 1 36-145 Normal (applies to non-numeric results) [facility] Laboratory test finding (navigational concept) 4.4 meq/L 3 .5-5.1 Normal (applies to non-numeric results) [facility] Laboratory test finding (navigational concept) 107 meq/L 9 8-107 Normal (applies to non-numeric results) [facility]) Laboratory test finding (navigational concept) 26 meq/L 2 1-32 Normal (applies to non-numeric results) [facility] [place]) Laboratory test finding (navigational concept) 9.0 mg/dL 8 .5-10.1 Normal (applies to non-numeric results) [facility]) Laboratory test finding (navigational concept) 5 meq/L 8-16 Below low normal [facility] ([facility]) Laboratory test finding (navigational concept) 15 U/L 7 -37 Normal (applies to non-numeric results) [facility] Laboratory test finding (navigational concept) 16 U/L 1 2-78 Normal (applies to non-numeric results) [facility] Laboratory test finding (navigational concept) 138 U/L 45-117 Above high normal [facility] ([facility]) Laboratory test finding (navigational concept) 0.2 mg/dL 0 .2-1.0 Normal (applies to non-numeric results) [facility] Laboratory test finding (navigational concept) 7.3 GM/DL 6 .4-8.2 Normal (applies to non-numeric results) [facility] Laboratory test finding (navigational concept) 3.9 GM/DL 3 .2-5.2 Normal (applies to non-numeric results) [facility] Laboratory test finding (navigational concept) 1.1 1.2-2.2 Below low normal [facility] ([facility]) ID Date Data Source [id number] 08/20/2020 10:58:00 AM EDT [facility] ([facility]) Name Value Range Interpretation Code Description Data Dulce rce(s) Supporting Document(s) Erythrocyte sedimentation rate by Westergren method 7 mm/hr 0-20 Normal (applies to non-numeric results) [facility] ID Date Data Source [id number] 08/20/2020 10:58:00 AM EDT [facility] ([facility] Name Value Range Interpretation Code Description Data Dulce rce(s) Supporting Document(s) Laboratory test finding (navigational concept) 9.2 10 4 .0-10.0 Normal (applies to non-numeric results) [facility]) Laboratory test finding (navigational concept) 14.9 g/dL 1 2.0-15.5 Normal (applies to non-numeric results) [facility] Laboratory test finding (navigational concept) 4.99 10 4 .00-5.40 Normal (applies to non-numeric results) [facility] Laboratory test finding (navigational concept) 45.2 % 3 6.0-47.0 Normal (applies to non-numeric results) [facility] ([facility]) Laboratory test finding (navigational concept) 90.6 fl 8 0.0-96.0 Normal (applies to non-numeric results) [facility] Laboratory test finding (navigational concept) 29.9 pg 2 7.0-33.0 Normal (applies to non-numeric results) [facility] Laboratory test finding (navigational concept) 12.8 % 1 1.5-14.5 Normal (applies to non-numeric results) [facility] ([facility]) Laboratory test finding (navigational concept) 33.0 g/dL 3 2.0-36.5 Normal (applies to non-numeric results) [facility] Laboratory test finding (navigational concept) 64.0 % 3 6.0-66.0 Normal (applies to non-numeric results) [facility] ([facility]) Laboratory test finding (navigational concept) 303 10 1 50-450 Normal (applies to non-numeric results) [facility] [place] Laboratory test finding (navigational concept) 5.1 % 2 .0-8.0 Normal (applies to non-numeric results) [facility] Laboratory test finding (navigational concept) 28.1 % 2 4.0-44.0 Normal (applies to non-numeric results) [facility] Laboratory test finding (navigational concept) 0.6 % 0 .0-1.0 Normal (applies to non-numeric results) [facility] ([facility]) Laboratory test finding (navigational concept) 1.6 % 0 .0-3.0 Normal (applies to non-numeric results) [facility] ([facility] Laboratory test finding (navigational concept) 0.0 % 0 -0 Normal (applies to non- numeric results) [facility] ([facility] ) Laboratory test finding (navigational concept) 0.6 % 0 -3.0 Normal (applies to non-numeric results) [facility] ([facility] Laboratory test finding (navigational concept) 2.6 10 1 .5-5.0 Normal (applies to non-numeric results) [facility] ([facility] [place] Laboratory test finding (navigational concept) 5.9 10 1 .5-8.5 Normal (applies to non-numeric results) [facility] ([facility] Laboratory test finding (navigational concept) 0.5 10 0 .0-0.8 Normal (applies to non-numeric results) [facility] ([facility]) Laboratory test finding (navigational concept) 0.2 10 0 .0-0.5 Normal (applies to non-numeric results) [facility] ([facility]) Laboratory test finding (navigational concept) 0.1 10 0 .0-0.2 Normal (applies to non-numeric results) [facility] ([facility]) ID Date Data Source [id number] 05/12/2020 10:27:00 AM [facility] Name Value Range Interpretation Code Description Data Dulce rce(s) Supporting Document(s) Surgical pathology study Laboratory test result [facility] ([facility], ) FINAL DIAGNOSIS A - Capsule, right breast, reconstruction: Fibroconnective tissue with mild chronic inflammation and focal foreign body type giant cell reaction, and granulation. No evidence for malignancy. B - Capsule, left breast, reconstruction: Fibroconnective tissue with mild chronic inflammation. No evidence for malignancy. CD - Breast implant, right and left, reconstruction: Breast implants, for gross examination only. 05/13/2020 - 5 CLINICAL DIAGNOSIS Malignant neoplasm, S/P bilateral mastectomy reconstruction 05/13/2020 - 4442 GROSS DIAGNOSIS A - Received in formalin labeled "right breast capsule" and consists of one fragment of pink-gomez fibrous tissue measuring 1.3 x 0.5 x 0.5 cm. All in one. B - Received in formalin labeled "left breast capsule" and consists of multiple fragments of pink-gomez fibrous material measuring 4.5 x 4.0 x 1.0 cm. in aggregate. Forest Firefighter se ctions in one block. C - Received in formalin labeled "right breast implant for gross exam only" and consists of a breast implant measuring 13.0 cm. in diameter and up to 4.5 cm. in thickness. The specimen is intact. Inscription "Style 10, lot [id number], Allergan, 390 cc". The specimen is for gross examination only. D - Received in formalin labeled "left breast implant for gross exam only" and consists of a breast implant measuring 13.0 cm. in diameter and up to 4.5 cm. in thickness. The specimen is intact. Inscription "Style 10, lot [id number], Allergan, 390 cc". The specimen is for gross examination only. -SV 05/13/2020 - 1335 Signed ISIS MOYA MD 05/13/2020 1553 ID Date Data Source [id number] 05/07/2020 02:00:00 PM [facility] Name Value Range Interpretation Code Description Data Dulce rce(s) Supporting Document(s) SARS coronavirus 2 RNA Not Detected [facility] [place] This lab was ordered by [facility] and reported by [facility]. Procedure Social History No Information Vital Signs ID Date Data Source UNK Name Value Range Interpretation Code Description Data Source(s) Systolic blood pressure 118 mm[Hg] 118 mm[Hg] M EDKRISTYN ([facility], ) Diastolic blood pressure 74 mm[Hg] 74 mm[Hg] [facility] ([facility]) Body height 62 [in_i] 62 [in_i] [facility] ([facility]) 5'2" Body weight 114.00 [lb_av] 114.00 [lb_av] [facility] T ([facility]) Body mass index (BMI) [Ratio] 20.8 kg/m2 20.8 k g/m2 [facility] [place] body weight 110 [lb_av] 110 [lb_av] [facility] T ([facility]) Body weight 51.710 kg 51.710 kg [facility] ([facility]) Body surface area Derived from formula 1.51 m2 1.51 m2 [facility] ([facility]) Systolic blood pressure 108 mm[Hg] 108 mm[Hg] [facility] Body height 62 [in_i] 62 [in_i] [facility] 5'2" Diastolic blood pressure 62 mm[Hg] 62 mm[Hg] [facility] ([facility]) Heart rate 74 /min 74 /min [facility] ([facility]) Respiratory rate 14 /min 14 /min [facility] ( [facility]) Body temperature 98.9 [degF] 98.9 [degF] [facility] ([facility]) [place] body weight 110 [lb_av] 110 [lb_av] [facility] T ([facility]) Respiratory rate 16 /min 16 /min [facility] ( [facility]) Body temperature 97.8 [degF] 97.8 [degF] [facility] ([facility]) Body height 62 [in_i] 62 [in_i] [facility] 5'2" [place] body weight 110 [lb_av] 110 [lb_av] [facility] T ([facility]) Body temperature 97.8 [degF] 97.8 [degF] [facility] ([facility]) Body height 62 [in_i] 62 [in_i] [facility] ([facility]) 5'2" [place] body weight 110 [lb_av] 110 [lb_av] [facility] T ([facility]) Systolic blood pressure 98 mm[Hg] 98 mm[Hg] [facility] Diastolic blood pressure 60 mm[Hg] 60 mm[Hg] [facility] ([facility]) Heart rate 84 /min 84 /min [facility] ([facility] ) Respiratory rate 16 /min 16 /min [facility] ( [facility]) Body weight 116.00 [lb_av] 116.00 [lb_av] [facility] ([facility]) Body height 60 [in_i] 60 [in_i] [facility] 5'0" Heart rate 106 /min 106 /min [facility] Respiratory rate 16 /min 16 /min [facility] ( [facility]) Systolic blood pressure 112 mm[Hg] 112 mm[Hg] M [facility] ([facility]) Diastolic blood pressure 75 mm[Hg] 75 mm[Hg] [facility] ([facility]) Body mass index (BMI) [Ratio] 22.7 kg/m2 22.7 k g/m2 [facility] ([facility]) Respiratory rate 16 /min 16 /min [facility] ( [facility]) [place] body weight 110 [lb_av] 110 [lb_av] [facility] ([facility]) Body height 62 [in_i] 62 [in_i] [facility] ([facility]) 5'2" Systolic blood pressure 92 mm[Hg] 92 mm[Hg] M ED[facility] ([facility]) Diastolic blood pressure 54 mm[Hg] 54 mm[Hg] [facility] ([facility]) Heart rate 72 /min 72 /min [facility] ([facility]) Body temperature 97.1 [degF] 97.1 [degF] [facility] ([facility]) Respiratory rate 16 /min 16 /min [facility] ( [facility]) Body temperature 97.1 [degF] 97.1 [degF] [facility] ([facility]) Body height 62 [in_i] 62 [in_i] [facility] ([facility]) 5'2" [place] body weight 110 [lb_av] 110 [lb_av] [facility] T ([facility]) Body weight 112.00 [lb_av] 112.00 [lb_av] [facility] T ([facility]) Body mass index (BMI) [Ratio] 20.5 kg/m2 20.5 k g/m2 [facility] ([facility]) [place] body weight 110 [lb_av] 110 [lb_av] [facility] T ([facility]) Body weight 50.803 kg 50.803 kg [facility] ([facility]) Body height 62 [in_i] 62 [in_i] [facility] ([facility]) 5'2" Body surface area Derived from formula 1.49 m2 1.49 m2 [facility] ([facility]) Heart rate 76 /min 76 /min [facility] ([facility]) Respiratory rate 16 /min 16 /min [facility] Body temperature 96.9 [degF] 96.9 [degF] [facility] ([facility]) Body mass index (BMI) [Ratio] 21.2 kg/m2 21.2 k g/m2 [facility] ([facility]) [place] body weight 110 [lb_av] 110 [lb_av] [facility] ([facility]) Body weight 52.618 kg 52.618 kg [facility] Body surface area Derived from formula 1.52 m2 1.52 m2 [facility] Body height 62 [in_i] 62 [in_i] [facility] ([facility]) 5'2" Body weight 116.00 [lb_av] 116.00 [lb_av] [facility] T ([facility]) Systolic blood pressure 98 mm[Hg] 98 mm[Hg] [facility] ([facility]) Diastolic blood pressure 66 mm[Hg] 66 mm[Hg] [facility] ([facility]) Heart rate 74 /min 74 /min [facility] ([facility]) Respiratory rate 14 /min 14 /min [facility] ( [facility]) Body temperature 98.4 [degF] 98.4 [degF] [facility] ([facility])
--- OUTSIDE RECORDS SUMMARY | 2021-03-01 13:04 | CCD | Continuity of Care Document ---
Author Author Helga SURESH MD Organization Unknown Address [address] [place] [id number] Phone [phone] Care Team Providers Care Ergonomics Engineer Name Role Phone Berry Costello M.D. AUTM [phone] AUTM Unavailable Shala Shaikh D.O. AUTM Sdio AUTM [phone] Problems Active Problems Provider Date Malignant neoplasm of female breast Imelda Patton D.O. Ons et: 02/28/2013 Fibrocystic disease of breast Imelda Patton D.O. Onset: Breast lump Imelda Patton D.O. Onset: 02/28/2013 Social History Type Date Description Comments Sex Female Tobacco Use Start: Unknown Current Cigarette Smoker 5-10 Ci garettes Daily ETOH Use Occasionally consumes alcohol Recreational Drug Use Denies Drug Use Tobacco Use Start: Unknown Patient is a current smoker, smo kes every day approx 10 cig a day Smoking Status Reviewed: 08/14/19 Patient is a current smoker, smokes every day approx 10 cig a day Allergies, Adverse Reactions, Alerts Active Allergies Criticality Reaction | Severity Comments Date Reglan Unable to assess criticality ANXIOUS 02/05/2013 Trazodone Unable to assess criticality 09/16/2020 Medications Active Medications SIG Qnty Indications Ordering Provide r Date Omeprazole 40mg Capsules DR 1 by mouth every day 30caps R10.13 Jefferson Suresh MD 11/25/2020 Xanax 0.5mg Tablets 1 tab by mouth qhs Unknown Ambien CR 12.5mg Tablets ER 1 po qhs prn Unknown Mirtazapine Unknown Amoxicillin 500mg Tablets 2 x a day Unknown Immunizations Description No Information Available Vital Signs Date Vital Result Comment 11/25/2020 11:03am BP Systolic 118 mmHg BP Diastolic 74 mmHg Height 62 inches 5'2" Weight 114.00 lb BMI (Body Mass Index) 20.8 kg/m2 [place] Body Weight 110 lb Weight 51.710 kg BSA (Body Surface Area) 1.51 m2 10/23/2020 4:13pm BP Systolic 108 mmHg BP Diastolic 62 mmHg Heart Rate 74 /min Respiratory Rate 14 /min Body Temperature 98.9 F Height 62 inches 5'2" [place] Body Weight 110 lb Results Test Acquired Date Facility Test Result H/L Range Note Laboratory test finding 09/22/2020 [facility] [address] [place] [address] [id number] [phone] Pathology Request For Service (SEE NOTE) 1 1 FINAL DIAGNOSIS A - Tissue abrasive band winder, right, removal: For gross examination only. B - Tissue abrasive band winder, left, removal: For gross examination only. 09/23/2020 - 1316 CLINICAL DIAGNOSIS Bilateral breast acquired deformity 09/22/2020 - 1520 GROSS DIAGNOSIS A - Received in formalin labeled "right tissue abrasive band winder for ID only" consists of a breast tissue abrasive band winder measuring 11.5 x 10.0 x 1.0 cm with the following writing "Yamile, [id number], [address]" for gross examination only. B - Received in formalin labeled "left tissue abrasive band winder for ID only" consists of a breast tissue abrasive band winder measuring 11.5 x 10.0 x 2.5 cm with the following writing "Yamile, [id number], [id number]" for gross examination only. 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 Completed Medical Devices Description No Information Available Encounters Type Date Location Provider Dx Diagnosis Office Visit 11/25/2020 11:00a [facility] Jefferson Suresh MD R10.13 Epigastric pain R93.3 Abnormal findings on dx imag ing of prt digestive tract K22.4 Dyskinesia of esophagus Office Visit 10/23/2020 9:45a [facility] Angela Dow, DO 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.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 Z48.817 Encntr for surgical aftcr fo l surgery on the skin, subcu Office Visit 09/28/2020 11:30a [facility] Angela Dow, DO 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.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 Z48.817 Encntr for surgical aftcr fo l surgery on the skin, subcu Office Visit 07/20/2020 10:00a [facility] Angela Dow, DO 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 C50.919 Malignant neoplasm of unsp s ite of unspecified female breast Z48.89 Encounter for other specifie d surgical aftercare Z98.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 Office Visit 06/10/2020 9:15a [facility] Angela Dow, DO 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 Z48.89 Encounter for other specifie d surgical aftercare Z98.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 Assessments Date Code Description Provider 11/25/2020 R10.13 Epigastric pain Jefferson Suresh MD 11/25/2020 R93.3 Abnormal findings on diagnostic imaging of other parts of digestive tract Jefferson Suresh MD 11/25/2020 K22.4 Dyskinesia of esophagus Jefferson luz MD 10/23/2020 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 Angela Paloma, DO 10/23/2020 Z98.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 Angela Pale y, DO 10/23/2020 Z48.817 Encounter for surgic al aftercare following surgery on the skin and subcutaneous tissue Angela Paloma, DO 09/28/2020 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 Angela Paloma, DO 09/28/2020 Z98.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 Angela Pale y, DO 09/28/2020 Z48.817 Encounter for surgic al aftercare following surgery on the skin and subcutaneous tissue Angela Paloma, DO 09/22/2020 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 Angela Paloma, DO 09/16/2020 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 Angela Paloma, DO 09/16/2020 Z98.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 Angela Pale y, DO 09/16/2020 Z01.818 Encounter for other preprocedura l examination Angela Paloma, DO 07/20/2020 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 Angela Paloma, DO 07/20/2020 C50.919 Malignant neoplasm o f unspecified site of unspecified female breast Angela Paloma, DO 07/20/2020 Z48.89 Encounter for other specified ordoñez rgical aftercare Angela Paloma, DO 07/20/2020 Z98.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 Angela Pale y, DO 06/10/2020 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 Angela Paloma, DO 06/10/2020 Z48.89 Encounter for other specified ordoñez rgical aftercare Angela Paloma, DO 06/10/2020 Z98.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 Angela Pale y, DO Plan of Treatment Future Appointment(s):* 03/01/2021 2:00 am - Jefferson Suresh MD at [facility] 11/25/2020 - Jefferson Suresh MD* R10.13 Epigastric pain * R93.3 Abnormal findings on diagnostic imaging of other parts of digestive tract * K22.4 Dyskinesia of esophagus * * New Medication:* Omeprazole 40 mg * New Labs:* Tissue Transglutaminase Iga, Ordered: 11/25/20 * Immunoglobulin A, Ordered: 11/25/20 * New Orders:* EGD/Upper Endoscopy, Ordered: 11/25/20 * Comments:* long hx of epigastric pressure and intermitent dysphagia. UGI shows possible duodenitis.Has swelling of lips and various rashes. has been eval by Dr Payne. was told that no definite allery seen on his testing. Pt here to get Upper GI evaluated. * Recommendations:* EGD/Biopsies for celiac and EoE Labs trial on PPI Functional Status Description No Information Available Mental Status Description No Information Available Referrals Refer to Reason for Referral Status Appt Date Jefferson Suresh M.D. EPIGASTRIC PAIN/ DUODENITIS Scheduled 10/13/2020 [facility], Gastroenterology [address], [address] [place] [address] [phone]
[2021-03-01] MEDS ORDERED: LIDOCAINE 2% 100MG/5ML SDV (FOR ANES.) As Ordered ONE (13:34)
[2021-03-01] MEDS ORDERED: propofoL 200 MG/20 ML VIAL As Ordered ONE (13:34)
[2021-03-01] MEDS ORDERED: fentaNYL 100 MCG/2 ML INJECTION (J3010) As Ordered ONE (13:35)
--- NOTE | 2021-03-01 14:39 | ROOR ---
Patient Name: Helga Yang Procedure Date: 03/01/2021 2:18 PM Date of : 1980 Age: 40 Room: [facility] Gender: Female Note Status: Finalized Procedure: Upper GI endoscopy Indications: Epigastric abdominal pain, Dysphagia, Abnormal UGI series Providers: Jefferson Suresh MD Referring MD: Berry Costello MD Requesting Provider: Medicines: Monitored Anesthesia Care Complications: No immediate complications. Procedure: Pre-Anesthesia Assessment: - The heart rate, respiratory rate, oxygen saturations, blood pressure, adequacy of pulmonary ventilation, and response to care were monitored throughout the procedure. The Endoscope was introduced through the mouth, and advanced to the second part of duodenum. The upper GI endoscopy was accomplished without difficulty. The patient tolerated the procedure well. Findings: Non-severe esophagitis was found at the gastroesophageal junction. Biopsies were taken with a cold forceps for histology. Diffuse mild inflammation characterized by linear erosions was found in the gastric antrum. Biopsies were taken with a cold forceps for histology. Diffuse mildly erythematous mucosa was found in the first portion of the duodenum. Impression: - Mild esophagitis. Biopsied. - Mild gastritis. Biopsied. - Mild duodenitis. Biopsied. Recommendation: - Use Prilosec (omeprazole) 40 mg PO daily. - No ibuprofen, naproxen, or other non-steroidal anti-inflammatory drugs. - Telephone endoscopist for pathology results in 2 weeks. Procedure Code(s): --- Professional --- 10725, Esophagogastroduodenoscopy, flexible, transoral; with biopsy, single or multiple Diagnosis Code(s): --- Professional --- K20.9, Esophagitis, unspecified K29.70, Gastritis, unspecified, without bleeding K31.89, Other diseases of stomach and duodenum R13.10, Dysphagia, unspecified R10.13, Epigastric pain R93.3, Abnormal findings on diagnostic imaging of other parts of digestive tract CPT copyright 2019 [employer]. All rights reserved. The codes documented in this report are preliminary and upon service writer advisor review may be revised to meet current compliance requirements. Jefferson Suresh MD Jefferson Suresh MD 03/01/2021 2:39:31 PM Electronically signed by Jefferson Suresh MD Number of Addenda: 0 Note Initiated On: 03/01/2021 2:18 PM Estimated Blood Loss: Estimated blood loss: none.
[2021-03-01 15:00] VITALS: BP 132/76
== END 2021-03-01 15:11 | disposition home or self-care (01) ==
LOC: M OPP 13:00
PROVIDERS: ATTEND Internal Medicine Gastroenterology
DX: K20.90 Esophagitis, unspecified without bleeding (principal); K29.70 Gastritis, unspecified, without bleeding; K31.89 Other diseases of stomach and duodenum; R13.10 Dysphagia, unspecified; R10.13 Epigastric pain; R93.3 Abnormal findings on diagnostic imaging of other parts of digestive tract; Z90.710 Acquired absence of both cervix and uterus; Z90.13 Acquired absence of bilateral breasts and nipples; G47.00 Insomnia, unspecified; F41.9 Anxiety disorder, unspecified; Z79.899 Other long term (current) drug therapy
CPT/HCPCS: 43239; 88305; J3010

== ENCOUNTER → 2022-11-09 | Outpatient (CLI) | payer BC ==
[~2022-11-09] MED LIST changes: +CLON0.5T2; -NS 1,000 ML IV ONE; +PROM12.56 PO
== END ==
LOC: M RAD 10:34
PROVIDERS: ATTEND Internal Medicine Hematology & Oncology
DX: C50.919 Malignant neoplasm of unspecified site of unspecified female breast (principal)

== ENCOUNTER → 2023-07-27 | Outpatient (CLI) | payer OTHER ==
[2023-07-27 08:08] LABS: BASO # 0.1 10^3/uL (0.0-0.2); BASO % 0.7 % (0.0-1.0); EOS # 0.2 10^3/uL (0.0-0.5); EOS % 2.9 % (0.0-3.0); HEMATOCRIT 43.7 % (36.0-47.0); HEMOGLOBIN 14.9 g/dl (12.0-15.5); LYMPH # 3.1 10^3/uL (1.5-5.0); LYMPH % 37.1 % (24.0-44.0); MEAN CORPUSCULAR HEMOGLOBIN 31.7 pg (27.0-33.0); MEAN CORPUSCULAR HGB CONC 34.1 g/dl (32.0-36.5); MONO # 0.5 10^3/uL (0.0-0.8); MONO % 6.3 % (2.0-8.0); NEUTROPHILS # 4.4 10^3/uL (1.5-8.5); NEUTROPHILS % 52.6 % (36.0-66.0); PLATELET COUNT, AUTOMATED 273 10^3/uL (150-450); WHITE BLOOD COUNT 8.4 10^3/uL (4.0-10.0)
[2023-07-27 08:43] LABS: ALBUMIN 3.7 G/DL (3.2-5.2); ALKALINE PHOSPHATASE 110 U/L (46-116); ALT/SGPT 11 U/L (7.0-40); AST/SGOT 16 U/L (<34); BILIRUBIN,TOTAL 0.4 MG/DL (0.3-1.2); BLOOD UREA NITROGEN 8 MG/DL (9-23); CALCIUM LEVEL 8.7 MG/DL (8.5-10.1); CARBON DIOXIDE LEVEL 26 MMOL/L (20-31); CHLORIDE LEVEL 109 MMOL/L (98-107); CREATININE FOR GFR 0.75 MG/DL (0.55-1.30); GLOMERULAR FILTRATION RATE > 60.0 (>58); GLUCOSE, FASTING 79 MG/DL (60-100); SODIUM LEVEL 140 MMOL/L (136-145); TOTAL PROTEIN 6.5 G/DL (5.7-8.2)
[2023-07-27 08:45] LABS: FOLATE 16.69 NG/ML (>5.4)
== END ==
LOC: M LAB 07:33
PROVIDERS: ATTEND Family Medicine
DX: Z79.899 Other long term (current) drug therapy (principal)